=== PATIENT | female | born 1995 | race Caucasian/White ===

== ENCOUNTER 2023-11-01 22:31 | Emergency (ER) | payer BC, SELFPAY ==
[2023-11-01 22:37] VITALS: BP 128/85; PULSE 71; RESP 16; TEMP 36.7; O2SAT 100; BMI 26.6
--- NOTE | 2023-11-01 22:49 | CT_ITS ---
The [address] [address] Patient Name: PAULO BAER MRN: [id number] date: 1995 Sex: F Assigned Patient Location: ER Current Patient Location: ER Accession/Order Number: [id number] Exam Date: 11/01/2023 23:41 Report Date: 11/02/2023 00:47 At the request of: RUT RAMIREZ Procedure: CT abdomen pelvis w con CT ABDOMEN PELVIS WITHOUT CONTRAST HISTORY: Patient complains of mid back pain radiating to upper anterior abdomen. Vomiting. COMPARISON: None. TECHNIQUE: Thin section axial CT images were obtained from the lung bases to the pubis symphysis. This CT exam was performed using one or more of the following dose reduction techniques: Automated exposure control, adjustment of the mA and/or kV according to patient size, or use of iterative reconstruction technique. Thin section coronal and sagittal images were reconstructed from the axial data set. All images were reviewed and interpreted. CONTRAST: Study ordered as an IV study but there is no IV contrast seen or onboard due to faulty IV. According to the technologist, there is no infiltration. FINDINGS: Assessment of solid organs is limited without the benefit of IV contrast. LUNG BASES: The lung bases are clear. GE JUNCTION AND STOMACH: Negative. No hiatal hernia. LIVER: Negative. GALLBLADDER AND BILIARY TREE: Question of tiny small dependent layering dependent calcified gallstones versus sludge. Subtle hyperdensity dependent portion. Gallbladder otherwise negative. No wall thickening or pericholecystic fluid. No biliary duct dilation identified either intrahepatic or extrahepatic.0 SPLEEN: Negative. PANCREAS: Negative. ADRENALS: Negative. KIDNEYS AND URETERS: Negative. No urinary tract calculi or hydronephrosis. No renal masses or cysts are evident. SMALL BOWEL: Negative. No obstruction or enteritis. Normal caliber loops. LARGE BOWEL: Mild diffuse colonic stool retention. No colitis or wall thickening. No significant diverticulosis. No diverticulitis.. APPENDIX: Negative. AORTA: The abdominal aorta is normal size. IVC: Negative. LYMPH NODES: There is no lymphadenopathy. REPRODUCTIVE ORGANS: Trace simple free fluid within the right hemipelvis/cul-de-sac likely benign from menses; otherwise unremarkable reproductive organs. No pelvic mass or abnormality. Physiologic changes of uterus and ovaries for menstruating female. BLADDER: Normal bladder. No bladder calculus or wall thickening. BONES: Unremarkable. COMMENTS: No ascites. No free air. CT/CT abdomen pelvis w con IMPRESSION: 1. Trace simple appearing fluid in the dependent right hemipelvis and cul-de-sac likely physiologic from menstrual onset of menses. Correlate with cycle history. 2. Subtle dependent layering hyperdensities in gallbladder could reflect tiny gallstones or hyperdense sludge. No evidence of cholecystitis. 3. No evidence of acute appendicitis or acute bowel abnormality. 4. No hydronephrosis or urinary tract calculi. 7These imaging findings do not exclude additional clinically significant abnormalities. This report should be interpreted in the context of clinical information including patient symptoms and available laboratory findings. Follow-up imaging or other interventions may be appropriate, if indicated by your clinical impression. This report was generated with voice recognition software. Effort has been made to ensure accuracy of this report, however, occasional wording errors may persist. Please contact our office with any questions. 4 Electronically authenticated by: JAYLEN GARCIA Date: 11/02/2023 00:47
--- NOTE | 2023-11-01 22:50 | ED_ITS ---
HPI - General Adult General Chief complaint: Abdominal Pain Stated complaint: Back Pain Time Seen by Provider: 11/01/23 22:45 Source: patient Mode of arrival: walk-in Limitations: no limitations History of Present Illness HPI narrative: right flank pain for 4 days with no improvement with Rx'd muscle relaxers by her PCP. Tonight she developed nausea and vomiting. Denied fever, chills, urinary symptoms. Says pain radiates into the anterior upper abdomen and lower rib cage anteriorly. No prior history of similar symptoms. No skin rash. No urinary symptoms. She takes BCPs and deems chance of to be unlikely. Related Data Home Medications Medication Instructions Recorded Confirmed cyclobenzaprine 10 mg tablet mg 11/01/23 meloxicam 7.5 mg tablet mg 11/01/23 norethindrone 0.4 mg-ethinyl tab 11/01/23 estradiol 35 mcg tablet (Balziva (28)) Previous Rx's Medication Instructions Recorded hyoscyamine sulfate 0.125 mg 0.125 mg PO Q6H PRN abdominal pain 11/02/23 sublingual tablet (Levsin/SL) #20 tabs ondansetron 4 mg disintegrating 4 mg PO Q6H PRN nausea and 11/02/23 tablet vomiting #20 tabs Allergies Allergy/AdvReac Type Severity Reaction Status Date / Time No Known Drug Allergies Allergy Verified 11/01/23 22:36 PFSH [facility] Social History Smoking status: Current some day smoker Exam Narrative Exam Narrative: Nurses notes and vital signs reviewed and patient is not hypoxic. afebrile General: Well-appearing and in no apparent distress. Skin: Warm, dry, no pallor noted. No rash. Neck: Supple, non-tender. No meningismus Eye: Pupils are equal, round and EOMI. No scleral icterus. Ears, Nose, Mouth, and Throat: Oral mucosa is moist Cardiovascular: Regular Rate and Rhythm without murmur, gallop or rub. Respiratory: No accessory muscle use or respiratory distress. Lungs are clear to auscultation, no wheezing, rales or rhonchi Back: No midline thoracic or lumbar vertebral tenderness. Right parathoracic and paralumbar soft tissue. No CVA tenderness Musculoskeletal: normal ROM, no calf or popliteal tenderness, no lower extremity edema/swelling GI: Abdomen is soft, non-distended. Normal bowel sounds. No masses appreciated. Upper abdominal tenderness to palpation. No rebound, guarding, or rigidity noted. Neurological: A&O x4. No cranial nerve dysfunction observed. No truncal ataxia. Moves all extremities. Sensation intact. Psychiatric: Cooperative and interactive. Normal mood and affect. Constitutional Vital Signs, click to edit/add: Last Vital Signs Temp 98.1 F 11/01/23 22:37 Pulse 71 11/01/23 22:37 Resp 16 11/01/23 22:37 BP 128/85 11/01/23 22:37 Pulse Ox 100 11/01/23 22:37 O2 Del Method Room Air 11/01/23 22:37 Course Vital Signs Vital signs: Vital Signs Temperature 98.1 F 11/01/23 22:37 Pulse Rate 71 11/01/23 22:37 Respiratory Rate 16 11/01/23 22:37 Blood Pressure 128/85 11/01/23 22:37 Pulse Oximetry 100 11/01/23 22:37 Oxygen Delivery Method Room Air 11/01/23 22:37 Temperature 98.1 F 11/01/23 22:37 Pulse Rate 71 11/01/23 22:37 Respiratory Rate 16 11/01/23 22:37 Blood Pressure 128/85 11/01/23 22:37 Pulse Oximetry 100 11/01/23 22:37 Oxygen Delivery Method Room Air 11/01/23 22:37 Medical Decision Making MDM Narrative Medical decision making narrative: For IV established and blood drawn and sent for testing. After she told me that she was on control pills and that was unlikely, she told the emergency department nurse that she had missed some doses of her pills and had some vaginal spotting therefore test was ordered. It was found to be negative. She then underwent CT scanning of the abdomen and pelvis. Blood and urine testing did not reveal any worrisome findings, other than slightly low potassium and sodium. Normal CBC, negative lipase, negative UA, normal renal function and normal LFTs. CT = gallbladder sludge vs gallstones, per radiologist. Findings discussed with the patient. She was discharged home with prescriptions for Levsin and Zofran and recommendation to avoid fatty foods. Referred to Dr Sanchez, general surgeon, for follow up. ED return if she worsens. Lab Data Lab results reviewed: Yes I reviewed the patient's lab results Labs: Lab Results 11/01/23 Range/Units 22:55 WBC 8.5 (4.0-11.0) 10^3/uL RBC 4.93 (4.20-5.40) 10^6/uL Hgb 13.1 (12.0-16.0) g/dL Hct 42.0 (36.0-48.0) % MCV 85.2 (81.0-99.0) fL MCH 26.6 L (26.7-34.0) pg MCHC 31.2 (29.9-35.2) g/dL RDW 14.8 (11.0-15.0) % Plt Count 361 (150-450) 10^3/uL MPV 10.8 (9.5-13.5) fL Neut % (Auto) 70.9 (43.0-75.0) % Lymph % (Auto) 21.7 (20.5-60.0) % [place] % (Auto) 4.3 (1.7-12.0) % Eos % (Auto) 2.4 (0.9-7.0) % Baso % (Auto) 0.5 (0.2-2.0) % Neut # (Auto) 6.0 (1.4-6.5) 10^3/uL Lymph # (Auto) 1.9 (1.2-3.8) 10^3/uL [place] # (Auto) 0.4 (0.3-0.8) 10^3/uL Eos # (Auto) 0.2 (0.0-0.7) 10^3/uL Baso # (Auto) 0.0 (0.0-0.1) 10^3/uL Abs Immat Gran (auto) 0.02 (0.00-0.03) 10^3/uL Imm/Tot Granulo (auto) 0.2 (0.0-0.5) % Sodium 131 L (136-145) mmol/L Potassium 3.2 L (3.5-5.1) mmol/L Chloride 99 (98-107) mmol/L Carbon Dioxide 26.3 (21.0-32.0) mmol/L Anion Gap 8.9 BUN 13.0 (7.0-18.0) mg/dL Creatinine 0.81 (0.55-1.02) mg/dL Est GFR ( Amer) >60 (>=60) Est GFR (Non-Af Amer) >60 (>=60) BUN/Creatinine Ratio 16.0 Glucose 113 H (74-106) mg/dL Calcium 9.5 (8.5-10.1) mg/dL Total Bilirubin 0.3 (0.2-1.0) mg/dL AST 21 (15-37) U/L ALT 26 (14-59) U/L Alkaline Phosphatase 74 (46-116) U/L Total Protein 8.8 H (6.4-8.2) g/dL Albumin 4.2 (3.4-5.0) g/dL Globulin 4.6 g/dL Albumin/Globulin Ratio 0.9 Lipase 40.0 (16.0-77.0) U/L Urine Color Yellow (YELLOW) Urine Clarity Clear (CLEAR) Urine pH 6.5 (5.0-9.0) Ur Specific [place] 1.025 (1.005-1.025) Urine Protein Negative (NEG/TRACE) mg/dL Urine Glucose (UA) Negative (NEGATIVE) mg/dL Urine Ketones Trace A (NEGATIVE) mg/dL Urine Occult Blood Trace-i (NEGATIVE) Urine Nitrite Negative (NEGATIVE) Urine Bilirubin Negative (NEGATIVE) Urine Urobilinogen 0.2 (0.2-1.0) EU/dL Ur Leukocyte Esterase Negative (NEGATIVE) Urine RBC 0-2 (0-2) #/HPF Urine WBC None seen (NONE SEEN) #/HPF Ur Squamous Epith Cells Few A (NONE/RARE) #/LPF Urine Crystals None seen (None Seen) #/HPF Urine Bacteria None seen (NONE SEEN) #/HPF Urine Casts None seen (NONE SEEN) #/LPF Urine Mucus None seen (NONE SEEN) Ur Culture Indicated? No Urine HCG, Qual Negative (NEGATIVE) Discharge Plan Discharge Chief Complaint: Abdominal Pain Clinical Impression: Gallbladder sludge, Biliary colic Patient Disposition: Home, Self-Care Time of Disposition Decision: 00:55 Prescriptions / Home Meds: New hyoscyamine sulfate [Levsin/SL] 0.125 mg tablet, sublingual 0.125 mg PO Q6H PRN (Reason: abdominal pain) Qty: 20 0RF ondansetron 4 mg tablet,disintegrating 4 mg PO Q6H PRN (Reason: nausea and vomiting) Qty: 20 0RF No Action cyclobenzaprine 10 mg tablet Balziva (28) 0.4-35 mg-mcg tablet meloxicam 7.5 mg tablet Instructions: Biliary Colic (ED) Stand Alone Forms: Portal Instructions Referrals: Blayne Sanchez MD [Physician] - As soon as possible VENUS TOBAR [Primary Care Provider] - 1 week
[2023-11-01 23:07] LABS: Basophils Percent Auto 0.5 % (0.2-2.0); Eosinophils Absolute Auto 0.2 10^3/uL (0.0-0.7); Eosinophils Percent Auto 2.4 % (0.9-7.0); Hemoglobin 13.1 g/dL (12.0-16.0); Immature Granulocytes Abs Auto 0.02 10^3/uL (0.00-0.03); Immature Granulocytes Pct Auto 0.2 % (0.0-0.5); Lymphocytes Absolute Auto 1.9 10^3/uL (1.2-3.8); Lymphocytes Percent Auto 21.7 % (20.5-60.0); Mean Corpuscular HGB Conc 31.2 g/dL (29.9-35.2); Mean Corpuscular Hemoglobin 26.6 pg (26.7-34.0); Mean Corpuscular Volume 85.2 fL (81.0-99.0); Mean Platelet Volume 10.8 fL (9.5-13.5); Monocytes Absolute Auto 0.4 10^3/uL (0.3-0.8); Monocytes Percent Auto 4.3 % (1.7-12.0); Neutrophils Percent Auto 70.9 % (43.0-75.0); Platelet Count 361 10^3/uL (150-450); Red Blood Count 4.93 10^6/uL (4.20-5.40); Red Cell Distribution Width 14.8 % (11.0-15.0); White Blood Count 8.5 10^3/uL (4.0-11.0)
[2023-11-01 23:10] LABS: Bilirubin Urine NEGATIVE (NEGATIVE); Blood Urine TRACE-I (NEGATIVE); Clarity Urine CLEAR (CLEAR); Color Urine YELLOW (YELLOW); Glucose Urine UA NEGATIVE (NEGATIVE); Ketones Urine TRACE mg/dL (NEGATIVE); Leukocyte Esterase Urine NEGATIVE (NEGATIVE); Nitrite Urine NEGATIVE (NEGATIVE); Protein Urine NEGATIVE (NEG/TRACE); Specific Gravity Urine 1.025 (1.005-1.025); Urobilinogen Urine 0.2 EU/dL (0.2-1.0); pH Urine 6.5 (5.0-9.0)
[2023-11-01 23:12] LABS: HCG Qualitative Urine* NEGATIVE (NEGATIVE); Urine Microscopic Indicated YES
[2023-11-01 23:21] LABS: Alanine Aminotransferase 26 U/L (14-59); Albumin Globulin Ratio 0.9; Albumin Level 4.2 g/dL (3.4-5.0); Alkaline Phosphatase 74 U/L (46-116); Anion Gap 8.9; Aspartate Amino Transferase 21 U/L (15-37); Bilirubin Total 0.3 mg/dL (0.2-1.0); Calcium 9.5 mg/dL (8.5-10.1); Carbon Dioxide 26.3 mmol/L (21.0-32.0); Chloride 99 mmol/L (98-107); Estimated GFR (African America >60 (>=60); Estimated GFR (Non-African Ame >60 (>=60); Globulin 4.6 g/dL; Glucose 113 mg/dL (74-106); Potassium 3.2 mmol/L (3.5-5.1); Sodium 131 mmol/L (136-145); Total Protein 8.8 g/dL (6.4-8.2)
[2023-11-01 23:23] LABS: Bacteria Urine NONE SEEN #/HPF (NONE SEEN); Cast Seen? NONE SEEN #/LPF (NONE SEEN); Crystals Seen? None Seen #/HPF (None Seen); Mucus Urine NONE SEEN (NONE SEEN); RBC Urine 0-2 #/HPF (0-2); Squamous Epithelial Cell Urine FEW #/LPF (NONE/RARE); Urine Culture Indicated NO; WBC Urine NONE SEEN #/HPF (NONE SEEN)
[2023-11-01] MEDS: ONDANSETRON PF 4 MG/2 ML VIAL IV (23:32)
[2023-11-01] MEDS: 0.9 % SODIUM CHLORIDE 1,000 ML 999 ML IV (23:32)
[2023-11-01] MEDS: KETOROLAC TROMETHAMINE 30 MG/ML VIAL IVP (23:32)
[2023-11-02 01:06] VITALS: BP 122/82; PULSE 98; RESP 16; TEMP 36.8; O2SAT 99
== END 2023-11-02 01:07 | disposition home or self-care (01) ==
PROVIDERS: Emergency Provider Emergency Medicine; PCP Nurse Practitioner Family
DX: K80.50 Calculus of bile duct without cholangitis or cholecystitis without obstruction (principal); K82.8 Other specified diseases of gallbladder; Z79.899 Other long term (current) drug therapy; Z79.3 Long term (current) use of hormonal contraceptives; F17.210 Nicotine dependence, cigarettes, uncomplicated
CPT/HCPCS: 36415; 74177; 80053; 81001; 83690; 84703; 85025; 96374; 96375; 99284; J1885; J2405; Q9967

== ENCOUNTER 2024-01-19 09:52 | Outpatient (OUT) | payer BC, SELFPAY ==
--- NOTE | 2024-01-19 10:02 | XR_ITS ---
The [address] [address] Patient Name: PAULO BAER MRN: [id number] date: 1995 Sex: F Assigned Patient Location: [facility] Current Patient Location: [facility] Accession/Order Number: [id number] Exam Date: 01/19/2024 10:40 Report Date: 01/19/2024 11:34 At the request of: PATRIC MATTHEWS Procedure: XR chest 2V EXAM: XR chest 2V HISTORY: Preop exam COMPARISON: None. TECHNIQUE: PA and lateral views of the chest. FINDINGS: The cardiomediastinal silhouette is normal. No focal consolidation is identified. There is no pneumothorax. No pleural effusion is noted. The osseous structures are intact. XR/XR chest 2V IMPRESSION: No acute cardiopulmonary process. Electronically authenticated by: MARY MORALES Date: 01/19/2024 11:34
--- OUTSIDE RECORDS SUMMARY | 2024-01-19 10:15 | XMS_ITS | CCD ---
Author Organization [facility] Care Team Providers Care Employee Communications Coordinator Name Role Phone Clau Tobar PHYLICIA ., DR TURNER Attending Unavailabl e GALOK ., DR TURNER Consulting Unavailabl e PHYLICIA ., DR TURNER Admitting Unavailyin e MISC, DR LLANES Primary Care Unavailable CLAU TOBAR Primary Care Physician CLAU TOBAR Primary Care Physician [phone] [place] Attending Unavailable CLAU TOBAR Primary Care Unavailable [place] Admitting Unavailable [place] Referring Unavailable CLAU TOBAR [facility] Unavailable Blayne MATTHEWS Attending CLAU [facility]z [facility] Care Unavailable CLAU TOBAR [facility] Unavailable Blayne MATTHEWS Attending Unavailable KATHY TOBARHANIE [facility] Unavailable Blayne MATTHEWS Attending KATHY BenitezHANIE [facility] Unavailable Allergies Allergy Classification Reported Allergen(s) Allergy Type Date of Onset Reaction(s) Facility (1 source) No Known Medication Allergies; Translations: [No Known Medication Allergies] Propensity to adverse reactions (disorder) [facility] Repository Medications Current Medications Medication Drug Class(es) Dates Sig (Normalized) Sig (Original) {21 (Ethinyl Estradiol 0.035 MG / Norethindrone 0.4 MG Oral Tablet) / 7 (Inert Ingredients 1 MG Oral Tablet) } Pack [Balziva 28 Day] (1 source) Estrogen Start: 12-01-2023 take 1 tablet by mouth once daily Balziva oral tablet 1 tab(s), Oral, Daily, Refill(s) 0 Start Date: 12/01/23 Status: Ordered hyoscyamine sulfate 0.125 mg oral tablet (1 source) Start: 12-01-2023 take 1 tablet by mouth every six hours as needed for pain Levsin 0.125 mg SL Tab 0.125 mg = 1 tab(s), Oral, q6hr, PRN Pain, Refills(s) 0 Start Date: 12/01/23 Status: Ordered ondansetron 4 mg disintegrating oral tablet (1 source) Serotonin-3 Receptor Antagonist Start: 12-01-2023 take 1 tablet by mouth every six hours as needed for nausea ondansetron 4 mg Dis Tab 4 mg = 1 tab(s), Oral, q6hr, PRN Nausea/Vomiting, Refills(s) 0 Start Date: 12/01/23 Status: Ordered Ortho Micronor (2 sources) Ortho Micronor Active Problems Active Problems Problem Classification Problem Date Documented Date Episodic/Chronic Biliary tract disease (3 sources) Cholelithiasis without obstruction; Translations: [Calculus of gallbladder without cholecystitis without obstruction] Onset: 12-11-2023 Episodic Other screening for suspected conditions (not mental disorders or infectious disease) (4 sources) Encounter for screening for malignant neoplasm of cervix; Translations: [ENC SCREENING MALIG NEOPLASM CERV] Onset: 12-17-2022 Episodic Residual codes; unclassified (1 source) Nicotine-filled electronic cigarette user 12-11-2023 Episodic Unclassified (1 source) Body mass index 20-24 - normal 12-11-2023 Past or Other Problems Problem Classification Problem Date Documented Da te Episodic/Chronic Immunizations and screening for infectious disease (2 sources) Contact with and (suspected) exposure to other viral communicable diseases; Translations: [Contact with and (suspected) exposure to other viral communicable diseases Z20.828] Onset: 07-31-2021 Resolved: 08-06-2021 Episodic Viral infection (1 source) COVID-19 Onset: 08-06-2021 Resolved: 08-06-2021 Results Test Name Value Interpretation Reference Range Facility Insurance Correspondenceon 0 01-16-2024 Insurance Correspondence [id number]#1.00TIFF [facility] Formson 01-06-2024 Forms [id number] #1.00TIFF [facility] Consent for Procedure/Surger yon 12-12-2023 Consent for Procedure/Surgery [id number] #1.00TIFF [facility] Ambulatory Visit Summaryon 0 12-11-2023 Ambulatory Visit Summary PAULO MEREDITH :1995 Visit Date:12/11/2023 Ambulatory Visit Instructions Your Diagnosis Symptomatic cholelithiasis Your Care Team Attending Physician - BYRON GERONIMO, Blayne Marte Primary Care Physician - EKATERINA DIEHL, CLAU Schulz This Is Your Medications List Contact prescribing physician if questions or concerns ethinyl estradiol-norethindr one (Balziva oral tablet) hyoscyamine (Levsin 0.125 mg SL Tab) ondansetron (ondansetron 4 mg Dis Tab) Procedures Performed section. Discharge Vitals Heart Rate (Peripheral) 76 Respiratory Rate 16 Blood Pressure 125/80 Height 167 cm Height 66 in Weight 66.7 kg Weight 146.74 lb BMI 23.92 Medications What How Much When Instructions Unchanged ethinyl estradiol-norethindr one (Balziva oral tablet) 1 Tablets By Mouth Every day Contact prescribing physician if questions or concerns Unchanged hyoscyamine (Levsin 0.125 mg SL Tab) 1 Tablets By Mouth Every 6 hours as needed for Pain Contact prescribing physician if questions or concerns Unchanged ondansetron (ondansetron 4 mg Dis Tab) 1 Tablets By Mouth Every 6 hours as needed for Nausea/Vomiting Contact prescribing physician if questions or concerns Medications and Immunizations Administered Not Given influenza virus vaccine, inactivated, Patient Refuses Allergies No Known Allergies No Known Medication Allergies Problems Ongoing - Any problem that you are currently receiving treatment for. BMI 23.0-23.9, adult Cholelithiasis Symptomatic cholelithiasis Vapes nicotine containing substance Patient Survey You may receive a survey via text or e-mail asking about your office visit. Please share your experience with us by completing your survey. We appreciate your feedback and thank you for choosing us for your care. [facility] RAD - CT Reporton 12-02-2023 RAD - CT Report [id number] #1.00TIFF [facility] Provider Letteron 12-01-2023 Provider Letter December 01, 2023 PAULO MEREDITH [address] [place] [phone] : 1995 Dear Ms. Meredith, We have been trying to reach you with no success. It is important that you return our call regarding your ER visit on 11/01/23 upon receiving this letter. Also, at the time of your call, please provide us with your current demographic and insurance information. Thank you for your prompt attention to this matter. Sincerely, [facility] General Surgery [phone] [facility] ED Note-Physicianon 11-21-19 ED Note-Physician [id number] #1.00TIFF [facility] Consent for Treatmenton 11-06 Consent for Treatment [id number] #1.00TIFF Normal [facility] US Abdomen, Limitedon 2023 US Abdomen, Limited Exam Date/Time: 11/18/2023 07:40 EST Reason for Exam: K80.20 Calculus of gallbladder without cholecystitis without obstruction Report IMPRESSION: Multilevel echogenic shadowing calculi obscuring the gallbladder. If there is concern for cholecystitis, could correlate with nuclear medicine HIDA scan as clinically indicated. EXAMINATION: US Abdomen, Limited HISTORY: K80.20 Calculus of gallbladder without cholecystitis without obstruction. TECHNIQUE: Sonography of the right upper quadrant was performed. Images were obtained and stored in a permanent archive.\X09\ COMPARISON: None. RESULT: Pancreas: Normal sonographic appearance of the visualized portions. Liver: Normal echotexture, echogenicity, surface contour. No focal lesion. Gallbladder: Gallbladder not well-visualized secondary to multiple echogenic shadowing calculi. Biliary Ducts: No intrahepatic or extrahepatic bile duct dilation. CBD measures 0.3 cm. Right Kidney: Imaged portions unremarkable. Ascites: None. Ordering Provider: [place] GARCIA FINAL REPORT Dictated: 11/18/2023 4:21 pm Leon Goodson MD Signed (Electronic Signature): 11/18/2023 4:21 pm Signed by: Leon Goodson MD Transcribed by: KENNETH Technologist: RENEE Pinto [facility] Physician Orderon 11-13-2023 Physician Order [id number] #1.00TIFF Normal [facility] CHEMISTRYOrdered By: SYSTEM SYSTEM on 01-01-2023 Albumin [Mass/Vol] 4.0 g/dL Normal 3.3 - 5.0 gm/dL [facility] Albumin/Globulin [Mass ratio] 1.1 {ratio} Normal 1.1 - 2.2 [facility] ALP [Catalytic activity/Vol] 61 [iU]/d Normal 21 - 98 Int._Unit/L [facility] ALT No additional P-5'-P [Catalytic activity/Vol] 19 [iU]/d Normal 6 - 46 Int._Unit/L [facility] Anion gap [Moles/Vol] 12 mmol/L Normal 6 - 16 mEq/L F [facility] AST [Catalytic activity/Vol] 17 [iU]/d Normal 5 - 43 Int._Unit/L [facility] Bilirubin [Mass/Vol] 0.5 mg/dL Normal 0.0 - 1 .1 mg/dL [facility] Calcium [Mass/Vol] 9.0 mg/dL Normal 8.9 - 11. 1 mg/dL [facility] Chloride [Moles/Vol] 103 mmol/L Normal 101 - 1 11 mmol/L [facility] Cholesterol [Mass/Vol] 172 mg/dL Normal 120 - 200 mg/dL [facility] Cholesterol in HDL [Mass/Vol] 77 mg/dL Invalid Interpretation Code [facility] Cholesterol in LDL [Mass/Vol] 76 mg/dL Normal <=129mg/dL [facility] Cholesterol in VLDL [Mass/Vol] 15 mg/dL Normal 7 - 40 mg/dL [facility] CO2 [Moles/Vol] 25 mmol/L Normal 21 - 31 mmol/L [facility] Creatinine [Mass/Vol] 0.8 mg/dL Normal 0.5 - 1.3 mg/dL [facility] GFR/1.73 sq M.predicted among blacks MDRD (S/P/Bld) [Vol rate/Area] mL/min/1.73 m2 Normal >=59mL/min/1 .73 m2 [facility] Chem S GFR/1.73 sq M.predicted among non-blacks MDRD (S/P/Bld) [Vol rate/Area] mL/min/1.73 m2 Normal >=59mL/min/1 .73 m2 [facility] S Globulin (S) [Mass/Vol] 3.7 g/dL Normal 1.4 - 4.0 gm/dL [facility] Glucose [Mass/Vol] 83 mg/dL Normal 55 - 199 mg/dL [facility] Potassium [Moles/Vol] 3.5 mmol/L Normal 3.5 - 5.3 mmol/L [facility] Protein [Mass/Vol] 7.7 g/dL Normal 6.0 - 7.8 gm/dL [facility] Sodium [Moles/Vol] 136 mmol/L Normal 135 - 145 mmol/L [facility] T4 [Mass/Vol] 10.7 ug/dL High 4.6 - 9.1 mcg/dL [facility] Triglyceride [Mass/Vol] 77 mg/dL Normal <=149mg/dL [facility] TSH Qn 0.46 m[IU]/L Normal 0.34 - 5.60 mcIU/mL [facility] Urea nitrogen [Mass/Vol] 10 mg/dL Normal 5 - 21 mg/dL [facility] Urea nitrogen/Creatinine [Mass ratio] 12 mg/mg Normal 10 - 20 [facility] HEMATOLOGYOrdered By: SYSTEM SYSTEM on 01-01-2023 Basophils/100 WBC (Bld) 1.0 % Normal 0.0 - 2.0 % [facility]eAutoSS Basophils/Leukocytes Auto (Bld) [Pure # fraction] 0.0 E9/L Normal 0.0 - 0.2 E9/L [facility] Eosinophils/100 WBC (Bld) 3.1 % Normal 0.0 - 8.0 % [facility]eAutoSS Eosinophils/Leukocyte s Auto (Bld) [Pure # fraction] 0.2 E9/L Normal 0.0 - 0.5 E9/L [facility] Lymphocytes/100 WBC (Bld) 28.7 % Normal 14.0 - 50.0 % [facility]eAutoSS Lymphocytes/Leukocyte s Auto (Bld) [Pure # fraction] 1.5 E9/L Normal 1.0 - 4.0 E9/L [facility]eAutoSS Monocytes/100 WBC (Bld) 4.5 % Normal 4.0 - 14.0 % [facility]eAutoSS Monocytes/Leukocytes Auto (Bld) [Pure # fraction] 0.2 E9/L Normal 0.2 - 1.0 E9/L [facility] Neutrophils/100 WBC (Bld) 62.7 % Normal 36.0 - 75.0 % [facility]eAutoSS Neutrophils/Leukocyte s Auto (Bld) [Pure # fraction] 3.2 E9/L Normal 2.0 - 7.5 E9/L [facility] HEMATOLOGYOrdered By: Shira wilson on 01-01-2023 Erythrocyte distribution width (RBC) [Ratio] 16.5 % High 10.9 - 14.2 % [facility] Hematocrit (Bld) [Volume fraction] 39.3 % Normal 34.0 - 46.0 % [facility] Hemoglobin (Bld) [Mass/Vol] 12.6 g/dL Normal 12.0 - 16.0 gm/dL [facility] MCH (RBC) [Entitic mass] 26.3 pg Low 27.0 - 34.0 pg [facility] MCHC (RBC) [Mass/Vol] 32.1 g/dL Normal 31.4 - 36.0 gm/dL [facility] MCV (RBC) [Entitic vol] 82.0 fL Normal 80.0 - 100.0 fL [facility] Platelet mean volume (Bld) [Entitic vol] 8.9 fL Normal 6.4 - 10.8 fL [facility] Platelets (Bld) [#/Vol] 331.0 E9/L Normal 150.0 - 500.0 E9/L [facility] RBC (Bld) [#/Vol] 4.8 E12/L Normal 4.3 - 5.9 E12/L [facility] WBC corrected for nucl RBC Auto (Bld) [#/Vol] 5.1 E9/L Normal 4.0 - 11.0 E9/L [facility] PAP ACOG PANEL 2: 21 to 29on 12-25-2022 . . Normal [facility] Comment on above: Performed By: #### [id number] #### [facility] [address] [place] [address] Dr. Clem Cornelius Age Gdln ACOG Testing 21-29 [facility] Comment on above: Performed By: #### [id number] #### [facility] [address] [place] [address] Dr. Clem Cornelius DIAGNOSIS: Comment [facility] Comment on above: Result Comment: NEGA TIVE FOR INTRAEPITHELIAL LESION OR MALIGNANCY. Performed By: #### [id number] #### [facility] [address] [place] [address] Dr. Clem Cornelius Methodology: Comment [facility] Comment on above: Result Comment: This liquid based ThinPrep(R) pap test was screened with the use of an image guided system. Performed By: #### [id number] #### [facility] [address] [place] [address] Dr. Clem Cornelius Note: Comment [facility] Comment on above: Result Comment: The Pap smear is a screening test designed to aid in the detection of premalignant and malignant conditions of the uterine cervix. It is not a diagnostic procedure and should not be used as the sole means of detecting cervical cancer. Both false-positive and false-negative reports do occur. . Performed By: #### [id number] #### [facility] [address] [place] [address] Dr. Clem Cornelius Performed by: Comment Normal [facility] Comment on above: Result Comment: Jacqueline John, Physicist Nuclear Performed By: #### [id number] #### [facility] [address] [place] [address] Dr. Clem Cornelius Reflex Criteria: Comment [facility] Comment on above: Result Comment: The HPV DNA reflex criteria were not met with this specimen result therefore, no HPV testing was performed. . Performed By: #### [id number] #### [facility] [address] [place] [address] Dr. Clem Cornelius Specimen adequacy: Comment Normal [facility] Comment on above: Result Comment: Sati sfactory for evaluation. Endocervical and/or squamous metaplastic cells (endocervical component) are present. Performed By: #### [id number] #### [facility] [address] [place] [address] Dr. Clem Cornelius COVID Quick Testingon 2020 Result Positive [employer] Other COVID Quick Testingon 2020 Result Positive [employer] Other Vital Signs Date Time Vital Sign Value Performing Clinician Facility 12-11-2023 09:46-0500 Blood Pressure Location Order[facility]headL [facility] 12-11-2023 09:46-0500 Diastolic blood pressure 80 mm[Hg] Blayne NILL [facility] 12-11-2023 09:46-0500 Heart rate 76 /min [employer] [employer] [facility] 12-11-2023 09:46-0500 Respiratory rate 16 /min Blayne NILL [employer] [facility] 12-11-2023 09:46-0500 Systolic blood pressure 125 mm[Hg] Blayne NILL [employer] [facility] 08-06-2021 16:00-0400 Body height 170.18 cm Clau Tobar Other [employer] Other 08-06-2021 16:00-0400 Body mass index (BMI) [Ratio] 25.84 kg/m2 Clau Tobar Other [employer] Other 08-06-2021 16:00-0400 Body temperature 96.4 [degF] Clau Tobar Other [employer] Other 08-06-2021 16:00-0400 Body weight 74.84 kg Clau De Pazault Other [employer] Other 08-06-2021 16:00-0400 SaO2% (BldA) [Mass fraction] 97 % Clau De Pazault Other [employer] Other 07-31-2021 15:15-0400 Body temperature 96.8 [degF] Clau Ekaterina Other [employer] Other 07-31-2021 15:15-0400 SaO2% (BldA) [Mass fraction] 97 % Clau Ekaterina Other [employer] Other Encounters Encounter Date Encounter Type Care Provider Facility Start: 12-11-2023 End: 12-12-2023 ambulatory Blayne R BYRON Facility:[facility] Start: 12-11-2023 End: 12-11-2023 Patient encounter procedure Blayne R BYRON [facility] [place] Start: 11-27-2023 ambulatory Blayne R BYRON Facility :[facility] Start: 11-18-2023 End: 11-19-2023 ambulatory [place] Start: 11-18-2023 End: 11-18-2023 Patient encounter procedure LAKE GARCIA [facility] Start: 11-03-2023 ambulatory CLAU TOBAR Facil ity: [facility] Start: 01-01-2023 End: 01-01-2023 Patient encounter procedure CLAU TOBAR [facility] Start: 12-17-2022 End: 12-17-[address] JOHNNY WHATLEY . Facility: Start: 08-06-2021 End: 08-06-2021 ambulatory Clau Tobar Other [employer] Other Start: 08-06-2021 Office outpatient visit 15 minutes Clau Tobar [facility] Start: 07-31-2021 Office outpatient visit 15 minutes Clau Tobar [facility] Procedures Date Procedure Procedure Detail Performing Clinician section Blayne LORIN Puentes Immunizations Immunization Date Immunization Notes Care Provider Krista flores NEGATED: Highlighted row has not occurred!12-11-2023 influenza virus vaccine, unspecified formulation Balyne BYRON [facility] [place] Payers Date Payer Category Payer Unknown [id number] [id number] [id number] 1995 Unknown [id number] [id number] [id number] 1995 Unknown [id number] 2.16.8 [id number] 1995 Unknown [id number] 2.16.8 [id number] 1995 Unknown [id number] 2.16.8 [id number] 1959 [facility] [id number] Social History Date Type Detail Facility Sex Assigned At [facility] Tobacco smoking status No Smokin g Status Entered [facility] Start: 12-11-2023 Tobacco smoking status Ex-smoker (fi nding) [facility] Functional Status Date Assessment Result Facility 12-11-2023 Functional Status N/A [facility] [place] Clinical Note 12-11-2023 Note Date & Type Note Facility 12-11-2023 Note Chief Complaint consultation for abdominal pain, N/V HPI Staff 28 year old female presents on consultation from [facility] [place] [facility] for right flank pain, nausea and vomiting. Prescribed Levsin and Zofran, these have been minimally effective. CT abdomen/pelvis- unremarkable. ABD US completed 11/18- cholelithiasis. Reports she has episodic pain, happening approximately every 2 weeks over the past 2-3 months. Pain will last approximately 24 hours and then spontaneously resolve. She is unable to describe pain. She can not note any triggers for pain. She will experience nausea and vomiting during episodes of pain. Reports some loose stools as well. History of Present Illness 28 yo female referred for cholelithiasis; h/o upper abd pain, N/V which began several months ago, no known triggers; has been happening every 2 weeks, begins with back pain, then radiates around to abd, associated nausea/vomiting, no fevers, resolves within 24 hours, evaluation in [facility] end of October, with normal labs, abd ct scan without contrast with no acute findings; sludge/small stones in GB, no inflammation; images reviewed, right liver edge below umbilicus, with elongated gallbladder below umbilicus; RUQ US several weeks ago with poor visualization of gallbladder, multiple echogenic stones, no ductal dilation or inflammation; abdominal operations significant for . vapes nicotine-containing products; no h/o jaundice or pancreatitis; no fmhx of biliary disease or inflammatory bowel disease. Review of Systems PHQ Score Initial Depression Screen Score: 0 SCORE ROS - Provider Constitutional: no fever, no sweats, no weight loss. Eyes: no glasses, no blurred vision, no visual loss. ENMT: no dentures, no hoarseness, no swallowing difficulties, no hearing loss, no ear infection(s), no nose bleeds. Cardiovascular: normal blood pressure, no chest pain, regular heartbeat, no heart murmur. Respiratory: no shortness of breath, no cough, no asthma, no wheezing. Gastrointestinal: no nausea, no vomiting, no diarrhea, no constipation, no blood in stool, no change in bowel habits, no abdominal pain, no hepatitis. Genitourinary: no kidney stones, no urine infection, no dysuria. Musculoskeletal: no pain, no weakness. Skin: no changing moles, no rash, no skin lumps. Neurologic: no seizures, no epilepsy, no headache. Psychiatric: no emotional or psychiatric problem. Heme/Lymph: no bleeding problems, no anemia, no blood clots, no transfusions. Allergy/Immunologic: no swollen lymph nodes/glands, no IV drug abuse. Other: Additional ROS info: Except as noted in the above Review of Systems and in the History of Present Illness, all other systems have been reviewed and are negative or noncontributory. Physical Exam Vitals & Measurements HR: 76(Peripheral) RR: 16 BP: 125/80 HT: 66 in HT: 167 cm WT: 66.7 kg WT: 146.74 lb BMI: 23.92 HEENT: normal conjunctiva, sclera clear, no scleral icterus, EOM intact, PERRLA, oral mucosa moist without lesions. Neck: trachea midline, no mass, symmetric, no thyromegaly or nodules, no adenopathy Respiratory: lungs CTA, respirations non labored. Cardiovascular: regular rate and rhythm, no murmur, no pedal edema or varicosities. Gastrointestinal: soft, non distended, no tenderness, no masses, no palpable hernias, diastasis recti no, no hepatosplenomegaly; normal bs Lymphatic: no cervical adenopathy, no supraclavicular adenopathy. Musculoskeletal: normal gait, digits and nails without infection, nodes, cyanosis, clubbing. Skin: no rashes, no lesions, no ulcers, no subcutaneous nodules, induration. Psychiatric/Neuro: oriented to time, place, person, judgement normal, affect appropriate for age, insight intact, no focal deficits. Tests: labs reviewed, x-rays reviewed, review of old records completed , Discussed surgical options, risks, and possible complications with patient. Assessment/Plan 1. Symptomatic cholelithiasis (K80.20: Calculus of gallbladder without cholecystitis without obstruction) plan laparoscopic cholecystectomy with possible intraoperative cholangiogram, informed consent obtained; slightly higher risk of open procedure due to abnormal anatomy, gallbladder below umbilicus. Unasyn 3 gms IV prior to OR SCDs Follow-up No qualifying data available Problem List/Past Medical History Ongoing BMI 23.0-23.9, adult Cholelithiasis Symptomatic cholelithiasis Vapes nicotine containing substance Historical No qualifying data Procedure/Surgical History section. Medications Balziva oral tablet, 1 tab(s), Oral, Daily Levsin 0.125 mg SL Tab, 0.125 mg= 1 tab(s), Oral, q6hr, PRN ondansetron 4 mg Dis Tab, 4 mg= 1 tab(s), Oral, q6hr, PRN Allergies No Known Allergies No Known Medication Allergies Social History Alcohol Current, Beer, Liquor, 1-2 times per month, 12/11/2023 Substance Abuse - Denies Substance Abuse, 12/11/2023 Tobacco Former smoker, quit more than 30 days ago Tobacco Use:. Cur (more content not included)... [facility] Comment on above: Result Comment: Elec tronically Signed By: BYRON GERONIMO, Blayne Borja\Date and Time Signed: 12/11/23 10:28 EST Evaluation + Plan note 01-01-2023 Note Date & Type Note Facility 01-01-2023 Evaluation + Plan note Diagnostic Tests PendingHIV Screen 4th Generation wRfx 01/01/23Acute Hepatitis A B C Panel 01/01/23RPR with Conf Rfx 01/01/23 [facility] Evaluation note 08-06-2021 Note Date & Type Note Facility 08-06-2021 Evaluation note Encounter Date Diagnosis Assessment Notes Aug, Contact with and (suspected) exposure to other viral communicable diseases (ICD-10 - Z20.828) Aug, COVID-19 (ICD-10 - U07.1) Today you tested positive for the COVID virus. This mean you need to follow all CDC quarantine guidelines found at coronavirus[place].gov. It is important to rest, increase fluids, and stay at home. Contact PCP and inform them of results. Medications like Mucinex, Cepacol, Tylenol, saline nasal spray are over the counter medications that can help with the symptoms. Current guidelines include staying home for at least 10 days, having no fever above 100.4 for 24 hours without medication and having significant improvement of symptoms before you are allowed to stop your quarantine. Contact primary care and ask for guidance is essential to follow up Aug, Other Additional time spent conducting pre-visit phone call, screening for symptoms, instructions on social distancing, application and removal of PPE, and cleaning of examination room, equipment and supplies was preformed. Patient education given for testing methodology and results. Patient care instructions given in writting by [facility] Care At Home document. [employer] Other Evaluation note 07-31-2021 Note Date & Type Note Facility 07-31-2021 Evaluation note Encounter Date Diagnosis Assessment Notes Jul, Contact with and (suspected) exposure to other viral communicable diseases (ICD-10 - Z20.828) Even though COVID RAPID test is NEGATIVE, I am highly suspicious at this time you may be positive due to the symptoms. Recommend patient follow Quarantine guidelines until you follow up with PCP.. Recommend OTC medication such as Mucinex, Sea salt nasal spray, Cepecol, Tylenol, Zyrtec, as they can help with symptoms Jul, Other Additional time spent conducting pre-visit phone call, screening for symptoms, instructions on social distancing, application and removal of PPE, and cleaning of examination room, equipment and supplies was preformed. Patient education given for testing methodology and results. Patient care instructions given in writting by [facility] Care At Home document. [employer] Other Hospital course Narrative Note Date & Type Note Facility Hospital course Narrative No data available for this section [facility] Hospital Discharge instructions Note Date & Type Note Facility Hospital Discharge instructions No data available for this section [facility] Progress note Note Date & Type Note Facility Progress note No data available for this section [facility] Summary Purpose Family History No Family History Records Found No data available for this section No data available for this section No Family History Records Found Advance Directives No Advanced Directives Records FoundNo Advanced Directives Records Found Additional Source Comments REASON FOR VISIT (unrecogniz ed section and content) #22 BLUE DODGE DART, EXPOSUR E TO BF, RUNNY NOSE, PRODUCTIVE COUGH X 1 WEEK, COVID Provider Visit#25 BLUE DART, NAUSEA, H/A, LOSS SMELL, LOSS TASTE, COVID Provider Visit INFORMATION SOURCE (unrecogn ized section and content) DATE CREATED AUTHOR 12/25/2022 [facility] DATE CREATED AUTHOR AUTHOR'S ORGANIZ ATION 01/17/2024 [facility] Patient Care team informatio n (unrecognized section and content) Personnel Name: CLAU TOBAR CNP Address: Address: [address] [place] [address] Personnel Name: CLAU TOBAR CNP Address: Address: [address] [place] [address]- Personnel Name: CLAU TOBAR CNP Address: Address: [address], [place] [address] FOR RECORDS PERTAINING TO PATIENTS WHO ARE OR HAVE BEEN ENROLLED IN A CHEMICAL DEPENDENCY/SUBSTANCEABUSE PROGRAM, SOME INFORMATION MAY BE OMITTED. This clinical summary was aggregated from multiple sources. Caution should be exercised in using it in the provision of clinical care. This summary normalizes information from multiple sources, and as a consequence, information in this document may materially change the coding, format and clinical context of patient data. In addition, data may be omitted in some cases. CLINICAL DECISIONS SHOULD BE BASED ON THE PRIMARY CLINICAL RECORDS. [facility] [employer] provides no warranty or guarantee of the accuracy or completeness of information in this document.
--- NOTE | 2024-01-19 10:44 | PM.PRESUREVA ---
History of Present Illness History of Present Illness Chief complaint: cholelithiasis Narrative: Patient presents for preadmission testing. The patient states she's been having issues with her gallbladder for the past few months, and her symptoms have been intermittent. She states she did wake up today with some right sided back pain, but denies any nausea, vomiting, fever, or any other complaints. Review of Systems ROS Narrative REVIEW OF SYSTEMS: Negative except as stated in HPI, ten or more systems reviewed. Constitutional: No fever , chills, weakness ENT: No sore throat or epistaxis Cardiovascular: No edema, chest pain, palpitations, or activity intolerance Respiratory: No shortness of breath, cough, or wheezing Musculoskeletal: No joint pain or swelling Genitourinary: No dysuria or hematuria Neurological: No numbness, tingling, weakness, or headache Psychiatric: No mood changes PFSH PFSH Medical History (Updated 01/19/24 @ 10:20 by Linda Bolivar NP) Anxiety ?F41.9 - Anxiety disorder, unspecified (ICD-10) COVID-19 ?U07.1 - COVID-19 (ICD-10) Cholelithiasis ?K80.20 - Calculus of gallbladder without cholecystitis without obstruction (ICD-10) Surgical History (Updated 01/19/24 @ 10:20 by Linda Bolivar NP) History of section ?Z98.891 - History of uterine scar from previous surgery (ICD-10) Family History (Updated 01/19/24 @ 10:20 by Linda Bolivar NP) Other Family history of hypertension Family history of ovarian cancer Family history of stroke Family history of uterine cancer Social History (Updated 01/19/24 @ 10:16 by Linda Bolivar NP) Within the past year, how often did you have a drink containing alcohol: 2-4 times a month Smoking status: Current some day smoker Do you use any of these nicotine containing products: vaping products Non-prescribed substance use: denies use Previous occupational history: Production/factory Highest level of school completed/degree received: high school graduate Meds Home Medications and Allergies Home Medications ?Medication ?Instructions ?Recorded ?Confirmed ?Type norethindrone 0.4 mg-ethinyl 1 tab PO DAILY 11/01/23 01/19/24 History estradiol 35 mcg tablet (Josseziva (28)) hyoscyamine sulfate 0.125 mg 0.125 mg PO Q6H PRN abdominal pain 11/02/23 01/19/24 Rx sublingual tablet (Levsin/SL) #20 tabs ondansetron 4 mg disintegrating 4 mg PO Q6H PRN nausea and 11/02/23 01/19/24 Rx tablet vomiting #20 tabs Allergies Allergy/AdvReac Type Severity Reaction Status Date / Time No Known Drug Allergies Allergy Verified 01/19/24 10:13 Exam Narrative Exam Narrative: Constitutional: Awake, alert, comfortable, well-appearing, nontoxic, interactive, vital signs as charted Head: Normocephalic, atraumatic Neck: Supple, normal appearance, normal range of motion, no meningeal signs, no lymphadenopathy Respiratory: No respiratory distress, breath sounds clear Cardiovascular: Regular rate and rhythm, strong and regular heart tones Abdomen: Nontender, normal bowel sounds, soft, no CVA tenderness Musculoskeletal: Normal gait, no swelling or edema Skin: No rashes or induration, no lesions, only visible skin inspected Neuro: No neurological deficits, normal sensation Psychiatric: Oriented ?3, normal affect Assessment and Plan Assessment and Plan (1) Cholelithiasis: Plan Laparoscopic cholecystectomy with possible cholangiogram scheduled with Dr. Sanchez 01/28/2024.
== END 2024-01-19 09:53 | disposition home or self-care (01) ==
LOC: PST 09:53
PROVIDERS: PCP Nurse Practitioner Family; Visit Provider Surgery
DX: Z01.810 Encounter for preprocedural cardiovascular examination (principal); Z01.818 Encounter for other preprocedural examination; K80.20 Calculus of gallbladder without cholecystitis without obstruction
CPT/HCPCS: 71046; G0463

== ENCOUNTER 2024-01-22 20:22 | Outpatient (REF) | payer BC, SELFPAY ==
--- OUTSIDE RECORDS SUMMARY | 2024-01-22 20:28 | XMS_ITS | CCD ---
Author Organization [facility] Care Team Providers Care Commutator Repairer Name Role Phone Clau Tobar Unavailable PHYLICIA ., DR TURNER Attending Unavailabl e GALOK ., DR TURNER Consulting Unavailabl e PHYLICIA ., DR TURNER Admitting Unavailabl e MISC, DR LLANES Primary Care Unavailable CLAU TOBAR Primary Care Physician CLAU TOBAR Primary Care Physician LAKE GARCIA Admitting Unavailable LAKE GARCIA Attending Unavailable LA[place] GARCIA Referring Unavailable CLAU TOBAR [facility] Unavailable CLAU TOBAR Primary [facility] Unavailable Blayne MATTHEWS Attending Unavailable CLAU TOBAR Primary Care Unavailable CLAU TOBAR Primary Care Unavailable KATHY TOBARHANIE [facility] Unavailable Blayne MATTHEWS Attending Blayne Mejia Attending Unavailable KATHY TOBARHANIE [facility] Unavailable Allergies Allergy Classification Reported Allergen(s) Allergy Type Date of Onset Reaction(s) Facility (1 source) No Known Medication Allergies; Translations: [No Known Medication Allergies] Propensity to adverse reactions (disorder) [facility] Repository Medications Current Medications Medication Drug Class(es) [...] Test Name Value Interpretation Reference Range Facility RAD - MISCon 01-20-2024 RAD - MISC [id number] #1.00TIFF [facility] Insurance Correspondenceon 0 01-16-2024 Insurance Correspondence [id number] 8#1.00TIFF [facility] Formson 01-06-2024 Forms [id number] #1.00TIFF [facility] Consent for Procedure/Surger yon 12-12-2023 Consent for Procedure/Surgery [id number] #1.00TIFF Normal [facility] Ambulatory Visit Summaryon 0 12-11-2023 Ambulatory Visit [...] you for choosing us for your care. Normal [facility] RAD - CT Reporton 12-02-2023 RAD - [address] Report [id number] #1.00TIFF Normal [facility] Provider Letteron 12-01-2023 Provider Letter December 01, 20[address] [place] [id number] : 1995 Dear Ms. Meredith, We have been trying to reach you with no success. It is important that you return our call regarding your ER visit on 11/01/23 upon receiving this letter. Also, at the time of your call, please provide us with your current demographic and insurance information. Thank you for your prompt attention to this matter. Sincerely, [facility] General Surgery [phone] [facility] ED Note-Physicianon 11-21-19 ED Note-Physician [id number] #1.00TIFF [facility] Consent for Treatmenton 11-06 Consent for Treatment [id number] #1.00TIFF Normal [facility] US Abdomen, Limitedon 2023 US Abdomen, Limited [...] Goodson MD Transcribed by: KENNETH Technologist: RENEE Normal [facility] Physician Orderon 11-13-2023 Physician Order [id number] #1.00TIFF Normal [facility] CHEMISTRYOrdered By: SYSTEM SYSTEM on 01-01-2023 Albumin [...] Normal >=59mL/min/1 .73 m2 [facility] Chem S Globulin (S) [Mass/Vol] 3.7 g/dL [...] 21 to 29on 12-25-2022 . . Normal [facility] Comment on above: Performed By: #### [id number] #### [facility] [address] [place] [address] Dr. Clem Cornelius Age Gdln ACOG Testing 21- [facility] Comment on above: Performed By: #### [id number] #### [facility] [address] [place] [address] Dr. Clem Cornelius DIAGNOSIS: Comment [facility] Comment on above: Result Comment: NEGA TIVE FOR INTRAEPITHELIAL LESION OR MALIGNANCY. Performed By: #### 4 [id number] #### [facility] [address] [place] [address] Dr. Clem Cornelius Methodology: Comment [facility] Comment on above: Result Comment: This liquid based ThinPrep(R) pap test was screened with the use of an image guided system. Performed By: #### 4 [id number] #### [facility] [address] [place] [address] Dr. Clem Cornelius Note: Comment [facility] Comment on above: Result Comment: The Pap smear is a screening test designed to aid in the detection of premalignant and malignant conditions of the uterine cervix. It is not a diagnostic procedure and should not be used as the sole means of detecting cervical cancer. Both false-positive and false-negative reports do occur. . Performed By: #### [id number] #### [facility] [address] [place] [address] Dr. Clem Cornelius Performed by: Comment Normal [facility] Comment on above: Result Comment: Jacqueline John, Experimental Mechanic Performed By: #### [id number] #### [facility] [address] [place] [address] Dr. Clem Cornelius Reflex Criteria: Comment [facility] Comment on above: Result Comment: The HPV DNA reflex criteria were not met with this specimen result therefore, no HPV testing was performed. . Performed By: #### 4 [id number] #### [facility] [address] [place] [address] Dr. Clem Cornelius Specimen adequacy: Comment Normal [facility] Comment on above: Result Comment: Sati sfactory for evaluation. Endocervical and/or squamous metaplastic cells (endocervical component) are present. Performed By: #### 4 [id number] #### [facility] [address] [address] [address] Clem Cornelius COVID Quick Testingon 2020 Result Positive [employer] Other COVID Quick Testingon 2020 Result Positive [employer] Other Vital Signs Date Time Vital Sign Value Performing Clinician Facility 12-11-2023 09:46-0500 Blood Pressure Location Blayne Stalkthis [facility] [place] 12-11-2023 09:46-0500 Diastolic blood pressure 80 mm[Hg] Blayne [employer] [facility] [place] 12-11-2023 09:46-0500 Heart rate 76 /min Plored [facility] 12-11-2023 09:46-0500 Respiratory rate 16 /min Blayne [employer] [facility] 12-11-2023 09:46-0500 Systolic blood pressure 125 mm[Hg] Blayne [employer] [facility] 08-06-2021 16:00-0400 Body height 170.18 cm Clau Tobar Other [employer] Other 08-06-2021 16:00-0400 Body mass index (BMI) [Ratio] 25.84 kg/m2 Clau Tobar Other [employer] Other 08-06-2021 16:00-0400 Body temperature 96.4 [degF] Clau Tobar Other [employer] Other 08-06-2021 16:00-0400 Body weight 74.84 kg Clau Tobar Other [employer] Other 08-06-2021 16:00-0400 SaO2% (BldA) [Mass fraction] 97 % Clau Tobar Other [employer] Other 07-31-2021 15:15-0400 Body temperature 96.8 [degF] Clau Tobar Other [employer] Other 07-31-2021 15:15-0400 SaO2% (BldA) [Mass fraction] 97 % Clau Tobar Other [employer] Other Encounters Encounter Date Encounter Type Care Provider Facility Start: 12-11-2023 End: 12-12-2023 ambulatory Blayne MATTHEWS Facility: [facility] Start: 12-11-2023 End: 12-11-2023 Patient encounter procedure Blayne MATTHEWS [facility] [place] Start: 11-27-2023 ambulatory CLAU EKATERINA Facil ity: [place] Start: 11-18-2023 End: 11-19-2023 ambulatory [place] GARCIA Facility:[facility] Start: 11-18-2023 End: 11-18-2023 Patient encounter procedure [place] GARC[place] [facility] Start: 11-03-2023 ambulatory CLAULATA TOBAR Facil ity: [place] Start: 01-01-2023 End: 01-01-2023 Patient encounter procedure CLAU TOBAR [facility] Start: 12-17-2022 End: 12-17-[address] JOHNNY WHATLEY . Facility: Start: 08-06-2021 End: 08-06-2021 ambulatory Clau Tobar Other [employer] Other Start: 08-06-2021 Office outpatient visit 15 minutes Clau Tobar [facility] Start: 07-31-2021 Office outpatient visit 15 minutes Clau Tobar [facility] Procedures Date Procedure Procedure Detail Performing Clinician section Blayne LORIN Puentes Immunizations Immunization Date Immunization Notes Care Provider Krista flores NEGATED: Highlighted row has not occurred!12-11-2023 influenza virus vaccine, unspecified formulation Blayne MATTHEWS [facility] Payers Date Payer Category Payer Unknown [id number] [id number] [id number] 1995 Unknown [id number] 2.16.8 [id number] 1995 Unknown [id number] 2.16.8 [id number] 1995 Unknown [id number] 2.16.8 [id number] 1995 Unknown [id number] 2.16.8 [id number] 1959 [facility] [id number] Social History Date Type Detail Facility Sex Assigned At [facility] Tobacco smoking status No Smokin g Status Entered [facility] Start: 12-11-2023 Tobacco smoking status Ex-smoker (fi nding) [facility] Functional Status Date Assessment Result Facility 12-11-2023 Functional Status N/A [facility] [place] Clinical Note 12-11-2023 Note Date & Type Note Facility 12-11-2023 Note Chief Complaint consultation for abdominal pain, N/V HPI Staff 28 year old female presents on consultation from [facility] for right flank pain, nausea and [...] fevers, resolves within 24 hours, evaluation in [facility] ED end of October, with normal [...] Tobacco Use:. Cur (more content not included)... [facility] Comment on above: Result Comment: Elec tronically Signed By: BYRON GERONIMO, Blayne Villalpando.cande\Date and Time Signed: 12/11/23 10:28 EST Evaluation + Plan note 01-01-2023 Note Date & Type Note Facility 01-01-2023 Evaluation + Plan note Diagnostic Tests PendingHIV Screen 4th Generation wRfx 01/01/23Acute Hepatitis A B C Panel 01/01/23RPR with Conf Rfx 01/01/23 [facility] Evaluation note 08-06-2021 Note Date & [...] Patient care instructions given in writting by [facility] Care At Home document. [employer] Other Evaluation note 07-31-2021 Note Date & [...] Patient care instructions given in writting by [facility] Care At Home document. [employer] Other Hospital course Narrative Note Date & Type Note Facility Hospital course Narrative No data available for this section [facility] Hospital Discharge instructions Note Date & Type Note Facility Hospital Discharge instructions No data available for this section [facility] Progress note Note Date & Type Note Facility Progress note No data available for this section [facility] Summary Purpose Family History No Family [...] pital DATE CREATED AUTHOR AUTHOR'S ORGANIZ ATION 01/21/2024 [facility] Patient Care team informatio n (unrecognized section and content) Personnel Name: CLAU TOBAR CNP [facility]: [facility] [place] [address]- Personnel Name: CLAU TOBAR CNP Address: Address: [address] [place] [address]- Personnel Name: CLAU TOBAR CNP Address: Address: [facility] [address], [place] [address]- FOR RECORDS PERTAINING TO PATIENTS WHO ARE [...] BE BASED ON THE PRIMARY CLINICAL RECORDS. [facility] provides no warranty or guarantee of the accuracy or completeness of information in this document.
[2024-01-27 20:08] LABS: Age Gdln ACOG Testing Note (.); IGP, rfx Aptima HPV ASCU Note (.)
== END 2024-01-22 20:23 | disposition home or self-care (01) ==
LOC: LAB 20:22
PROVIDERS: PCP Nurse Practitioner Family; Visit Provider Physician Assistant
DX: Z01.419 Encounter for gynecological examination (general) (routine) without abnormal findings (principal)
CPT/HCPCS: G0145

== ENCOUNTER 2024-01-28 06:52 | Day surgery (SDC) | payer BC, SELFPAY ==
[2024-01-19 10:35] VITALS: BP 132/72; PULSE 85; TEMP 36.4; O2SAT 100; BMI 23.6
[2024-01-28] VITALS (23 sets, daily range): BP systolic 118–174; BP diastolic 83–104; PULSE 51–81; TEMP 36.1–36.4; O2SAT 97–100; BMI 22.7
--- NOTE | 2024-01-28 | OP_ITS ---
OPERATION DATE: 01/28/2024 PREOPERATIVE DIAGNOSIS: Symptomatic cholelithiasis. POSTOPERATIVE DIAGNOSIS: Symptomatic cholelithiasis. PROCEDURE: Laparoscopic cholecystectomy. SURGEON: Blayne Sanchez M.D. ANESTHESIA: General endotracheal per Dr. Vasquez. ESTIMATED BLOOD LOSS: Less than 15 mL. INDICATIONS AND CONSENT: Patient is a 28-year-old female with history of symptomatic cholelithiasis with multiple small stones noted within the gallbladder, normal liver function tests. Indications, risks, benefits, alternatives of proceeding with laparoscopic cholecystectomy were explained extensively to the patient, including risks of bleeding, infection, bile duct injury, bowel injury, need for intraoperative cholangiogram, postoperative ERCP, open procedure, blood clot, pulmonary embolus, heart attack, anesthetic complications or need for further surgery. All of her questions were answered. Informed consent was obtained. PROCEDURE: Patient was brought to the operating room, placed in the supine position. General anesthesia was induced. She was prepped and draped in the usual sterile fashion. An infraumbilical incision was made through the area of previous scarring, carried down through subcutaneous tissue using blunt dissection. The fascia was grasped and incised. Two 0 Vicryl stay sutures placed in either side of the midline fascia. The Durand trocar was then inserted and secured using the stay sutures. The abdomen was then insufflated with carbon dioxide to a pressure of 15 mm/Hg. The patient was placed in reverse Trendelenburg position with the right side up. Three 5 mm ports were then placed; one in the subxiphoid area and two in the right subcostal area, all under direct visualization. Gallbladder was then grasped with an atraumatic grasper and retracted cephalad and on the patient?s right. The infundibulum was then grasped and retracted laterally and inferiorly. Dissection was just begun below the infundibulum, where some adhesions to the body of the gallbladder were taken down using electrocautery and sharp dissection. Dissection was begun below the infundibulum, where the cystic duct and cystic artery were carefully dissected out. There was noted to be a posterior branch of the cystic artery. The infundibulum was completed freed up. The critical view of safety was obtained. The cystic artery was clipped with two Hem-O-Tavo clips proximally and one distally towards the gallbladder. The posterior branch was controlled with regular clips, then divided. The cystic duct was controlled with two Hem-O-Tavo clips proximally towards the common duct, one distally towards the gallbladder, then divided. The gallbladder was then taken down from the liver bed using electrocautery. There was a mall opening made in the gallbladder with minimal spillage of bile, no stones. On the gallbladder was completely removed, it was brought out in an Endocatch bag through the umbilical port site. The abdomen was then copiously irrigated with saline until clear. The liver bed was inspected, noted to be hemostatic, with no evidence of bile leak. All port sites were examined upon withdrawal of the ports, there was noted to be good hemostasis. The umbilical port site fascia was then closed with a 0 Vicryl figure of eight suture. All port sites were infiltrated with 0.5% Marcaine. The skin was then closed with interrupted 4-0 subcuticular Monocryl sutures and skin glue. Sterile pressure dressings were applied. Sponge and needle counts were correct x3 per nursing personnel. Patient tolerated procedure well, was extubated and sent to recovery room in good condition. CC: KJ Pete
--- OUTSIDE RECORDS SUMMARY | 2024-01-28 06:55 | XMS_ITS | CCD ---
Author Organization [facility] Care Team Providers Care Resolution Expert Name Role Phone Clau Tobar Unavailable PHYLICIA ., DR TURNER Attending Unavailabl e DEVONASIK ., DR TURNER Consulting Unavailabl e DEVONASINicki ., DR TURNER Admitting Unavailyin parekh MISC, DR LLANES Primary Care Unavailable CLAU TOBAR Primary Care Physician CLAU TOBAR Primary Care Physician LAKE GARCIA Admitting Unavailable LAKE GARCIA Attending Unavailable LAKE GARCIA Referring Unavailable CLAU TOBAR Primary Care Unavailable CLAU TOBAR Primary Care Unavailable Blayne MATTHEWS Attending Unavailable CLAU TOBAR Primary Care Unavailable CLAU TOBAR Primary Care Unavailable CLAU TOBAR Primary [facility] Unavailable Blayne MATTHEWS Attending Unavailable Blayne MATTHEWS Attending Unavailable KATHY TOBARHANIE [facility] Unavailable SUKHDEEP VASQUEZ Attending Unavailable Allergies Allergy Classification Reported Allergen(s) Allergy Type Date of Onset Reaction(s) Facility (1 source) No Known Medication Allergies; Translations: [No Known Medication Allergies] Propensity to adverse reactions (disorder) [facility] Repository Medications Current Medications Medication Drug [...] RAD - MISCon 01-20-2024 RAD - MISC [id number] #1.00TIFF [facility] Insurance Correspondenceon 0 01-16-2024 Insurance Correspondence [id number] 8#1.00TIFF [facility] Formson 01-06-2024 Forms [id number] #1.00TIFF Normal [facility] Consent for Procedure/Surger yon 12-12-2023 Consent for Procedure/Surgery [id number] #1.00TIFF Normal [facility] Ambulatory Visit Summaryon 0 12-11-2023 Ambulatory [...] for choosing us for your care. Normal [facility] RAD - CT Reporton 12-02-2023 RAD - CT Report [id number] #1.00TIFF Normal [facility] Provider Letteron 12-01-2023 Provider Letter December 01, 2023 PAULO MEREDITH [address] [place] [phone] : 1995 Dear Ms. Meredith, We have been trying to reach you with no success. It is important that you return our call regarding your ER visit on 11/01/23 upon receiving this letter. Also, at the time of your call, please provide us with your current demographic and insurance information. Thank you for your prompt attention to this matter. Sincerely, [facility] General Surgery [phone] Normal [facility] ED Note-Physicianon 11-21-19 ED Note-Physician [id number] #1.00TIFF Normal [facility] Consent for Treatmenton 11-06 Consent for Treatment [id number] #1.00TIFF [facility] US Abdomen, Limitedon 2023 US Abdomen, [...] MD Transcribed by: KENNETH Technologist: RENEE Normal [facility] Physician Orderon 11-13-2023 Physician Order [id number] #1.00TIFF Normal [facility] CHEMISTRYOrdered By: SYSTEM SYSTEM on 01-01-2023 [...] 21 to 29on 12-25-2022 . . Normal [facility] Comment on above: Performed By: #### [id number] #### [facility] [address] [place] [address] Dr. Clem Cornelius Age Gdln ACOG Testing 21- [facility] Comment on above: Performed By: #### [id number] #### [facility] [address] [place] [address] Dr. Clem Cornelius DIAGNOSIS: Comment [facility] Comment on above: Result Comment: NEGA TIVE FOR INTRAEPITHELIAL LESION OR MALIGNANCY. Performed By: #### [id number] #### [facility] [address] [place] [address] Dr. Clem Cornelius Methodology: Comment [facility] Comment on above: Result Comment: This liquid based ThinPrep(R) pap test was screened with the use of an image guided system. Performed By: #### 4 [id number] #### [facility] [address] [place] [address] Dr. Clem Cornelius Note: Comment [facility] Comment on above: Result Comment: The Pap smear is a screening test designed to aid in the detection of premalignant and malignant conditions of the uterine cervix. It is not a diagnostic procedure and should not be used as the sole means of detecting cervical cancer. Both false-positive and false-negative reports do occur. . Performed By: #### [id number] #### [facility] [address] [place] [address] Dr. Clem Cornelius Performed by: Comment [facility] Comment on above: Result Comment: Jacqueline John, Files Supervisor Performed By: #### [id number] #### [facility] [address] [place] [address] Dr. Clem Cornelius Reflex Criteria: Comment [facility] Comment on above: Result Comment: The HPV DNA reflex criteria were not met with this specimen result therefore, no HPV testing was performed. . Performed By: #### 4 [id number] #### [facility] [address] [address] [address] Clem Cornelius Specimen adequacy: Comment Normal [facility] Comment on above: Result Comment: Sati sfactory for evaluation. Endocervical and/or squamous metaplastic cells (endocervical component) are present. Performed By: #### 4 [id number] #### [facility] [address] [address] [address] Clem Cornelius COVID Quick Testingon 2020 Result Positive [facility] Other COVID Quick Testingon 2020 Result Positive [facility] Other Vital Signs Date Time Vital Sign Value Performing Clinician Facility 12-11-2023 09:46-0500 Blood Pressure Location Blayne Dome[employer] [facility] [place] 12-11-2023 09:46-0500 Diastolic blood pressure 80 mm[Hg] Blayne IKOR [employer] [facility] 12-11-2023 09:46-0500 Heart rate 76 /min [place] [place] [employer] [facility] 12-11-2023 09:46-0500 Respiratory rate 16 /min Blayne [employer] [facility] 12-11-2023 09:46-0500 Systolic blood pressure 125 mm[Hg] Blayne [employer] [facility] 08-06-2021 16:00-0400 Body height 170.18 cm Clau Tobar Other [facility] Other 08-06-2021 16:00-0400 Body mass index (BMI) [Ratio] 25.84 kg/m2 Clau Tobar Other [facility] Other 08-06-2021 16:00-0400 Body temperature 96.4 [degF] Clau Tobar Other [facility] Other 08-06-2021 16:00-0400 Body weight 74.84 kg Clau Tobar Other [facility] Other 08-06-2021 16:00-0400 SaO2% (BldA) [Mass fraction] 97 % Clau De Pazault Other [facility] Other 07-31-2021 15:15-0400 Body temperature 96.8 [degF] Clau De Pazault Other [facility] Other 07-31-2021 15:15-0400 SaO2% (BldA) [Mass fraction] 97 % Clau De Pazault Other [facility] Other Encounters Encounter Date Encounter Type Care Provider Facility Start: 01-22-2024 End: 01-22-2024 ambulatory SUKHDEEP VASQUEZ Not Available Start: 12-11-2023 End: 12-12-2023 [facility]ulatory [facility] Start: 12-11-2023 End: 12-11-2023 Patient encounter procedure Blayne MATTHEWS [facility] [place] Start: 11-27-2023 ambulatory CLAU TOBAR Facil ity: [place] Start: 11-18-2023 End: 11-19-2023 ambulatory [place] Start: 11-18-2023 End: 11-18-2023 Patient encounter procedure LAKE GARCIA [facility] Start: 11-03-2023 ambulatory CLAU TOBAR Facil ity: [place] Start: 01-01-2023 End: 03-29-2023 Patient encounter procedure CLAU TOBAR [facility] Start: 12-17-2022 End: 12-17-[address] JOHNNY WHATLEY . Facility: Start: 08-06-2021 End: 08-06-2021 ambulatory Clau Ekaterina Other [facility] Other Start: 08-06-2021 Office outpatient visit 15 minutes Clau Tobar [facility] Start: 07-31-2021 Office outpatient visit 15 minutes Clau Tobar [facility] Procedures Date Procedure Procedure Detail Performing Clinician section Blayne Puentes Immunizations Immunization Date Immunization Notes Care Provider Fa cility NEGATED: Highlighted row has not occurred!12-11-2023 influenza virus vaccine, unspecified formulation Blayne MATTHEWS [facility] [place] Payers Date Payer Category Payer Unknown [id number] 2.16.84 [id number] 1995 Unknown [id number] 2.16.8 [id number] 1995 Unknown [id number] 2.16.8 [id number] 1995 Unknown [id number] 2.16.8 [id number] 1995 Unknown [id number] 2.16.8 [id number] 1995 Unknown [id number] 2.16.84 [id number] 1959 [facility] [id number] Social History Date Type Detail Facility Sex Assigned At [facility] Tobacco smoking status No Smokin g Status Entered [facility] Start: 12-11-2023 Tobacco smoking status Ex-smoker (fi nding) [facility] [place] Functional Status Date Assessment Result Facility 12-11-2023 Functional Status N/A [facility] [place] Clinical Note 12-11-2023 Note Date & Type Note Facility 12-11-2023 Note Chief Complaint consultation for abdominal pain, N/V HPI Staff 28 year old female presents on consultation from [facility] for right flank pain, nausea and [...] fevers, resolves within 24 hours, evaluation in [facility] ED end of October, with [...] Tobacco Use:. Cur (more content not included)... [facility] Comment on above: Result Comment: Elec tronically Signed By: BYRON GERONIMO, Blayne Borja\Date and Time Signed: 12/11/23 10:28 EST Evaluation + Plan note 01-01-2023 Note Date & Type Note Facility 01-01-2023 Evaluation + Plan note Diagnostic Tests PendingHIV Screen 4th Generation wRfx 01/01/23Acute Hepatitis A B C Panel 01/01/23RPR with Conf Rfx 01/01/23 [facility] Evaluation note 08-06-2021 Note Date & [...] care instructions given in writting by [facility] Care At Home document. [facility] Other Evaluation note 07-31-2021 Note Date & [...] Patient care instructions given in writting by [facility] document. [facility] Other Hospital course Narrative Note Date & Type Note Facility Hospital course Narrative No data available for this section [facility] Hospital Discharge instructions Note Date & Type Note Facility Hospital Discharge instructions No data available for this section [facility] Progress note Note Date & Type Note Facility Progress note No data available for this section [facility] Summary Purpose Family History No Family History Records Found No data available for this section No data available for this section No Family History Records FoundNo Family History Records Found Advance Directives No Advanced Directives Records FoundNo Advanced Directives Records FoundNo Advanced Directives Records Found Additional Source Comments REASON FOR VISIT (unrecogniz ed section and content) #22 BLUE DODGE DART, EXPOSUR E TO BF, RUNNY NOSE, PRODUCTIVE COUGH X 1 WEEK, COVID Provider Visit#25 BLUE DART, NAUSEA, H/A, LOSS SMELL, LOSS TASTE, COVID Provider Visit INFORMATION SOURCE (unrecogn ized section and content) DATE CREATED AUTHOR 12/25/2022 [facility] DATE CREATED AUTHOR AUTHOR'S ORGANIZ ATION 01/21/2024 [place] DATE CREATED AUTHOR AUTHOR'S ORGANIZ ATION 01/23/2024 [facility] EPIC Patient Care team informatio n (unrecognized section and content) Personnel Name: EKATERINA SHANITAKATHYCLAU J Address: Address: [address] [place] [address] Personnel Name: EKATERINACLAU TREVINO CNP Address: Address: [facility] Dilip Mathias, [place], [address] Personnel Name: EKATERINA CAPTAIN ASSISTANTCLAU Jazz Address: Address: [facility] Dilip Mathias, [facility] [place], [address] FOR RECORDS PERTAINING TO PATIENTS WHO ARE [...] BE BASED ON THE PRIMARY CLINICAL RECORDS. [employer] provides no warranty or guarantee of the accuracy or completeness of information in this document.
[2024-01-28 07:22] LABS: HCG Qualitative NEGATIVE (NEGATIVE)
[2024-01-28] MEDS: LACTATED RINGER'S SOLUTION 1,000 ML 50 ML IV ×2 (07:27→09:22)
[2024-01-28] MEDS: AMPICILLIN SODIUM/SULBACTAM NA 3 GM in 0.9 % SODIUM CHLORIDE 100 ML IV (08:14)
[2024-01-28] MEDS: BUPIVACAINE HCL 0.5% PF 50 MG/10 ML VIAL 20 ML INJ (09:36)
[2024-01-28] MEDS: HYDROMORPHONE HCL 0.5 MG/0.5 ML SYRINGE IV (10:05)
[2024-01-28] MEDS: KETOROLAC TROMETHAMINE 30 MG/ML VIAL IVP (10:18)
[2024-01-28] MEDS: MEPERIDINE HCL/PF 25 MG/ML VIAL 12.5 MG IVP (10:24)
[2024-01-28] MEDS: HYDROCODONE/ACET 5-325 MG TABLET 1 TAB PO (10:52)
== END 2024-01-28 12:20 | disposition home or self-care (01) ==
PROVIDERS: PCP Nurse Practitioner Family; Visit Provider Surgery
PROC: (CPT 790; principal; 2024-01-28 08:15)
DX: K80.10 Calculus of gallbladder with chronic cholecystitis without obstruction (principal); F41.9 Anxiety disorder, unspecified; Z86.16 Personal history of COVID-19; F17.290 Nicotine dependence, other tobacco product, uncomplicated
CPT/HCPCS: 47562; 36415; 84703; 88304; 94667; 99999; J1094; J1170; J2704

== ENCOUNTER 2024-05-10 19:34 | Emergency (ER) | payer BC, SELFPAY ==
[2024-05-10 19:55] VITALS: BP 131/93; PULSE 58; TEMP 36.8; O2SAT 100; BMI 21.9
== END 2024-05-10 21:38 | disposition left against medical advice (07) ==
LOC: ER 19:41
PROVIDERS: Emergency Provider Emergency Medicine; PCP Nurse Practitioner Family
DX: Z53.21 Procedure and treatment not carried out due to patient leaving prior to being seen by health care provider (principal)

== ENCOUNTER 2024-06-14 10:10 | Emergency (ER) | payer BC, SELFPAY ==
[2024-06-14 10:30] VITALS: BP 116/80; PULSE 74; TEMP 37; O2SAT 99; BMI 23.4
--- NOTE | 2024-06-14 10:48 | ED.GENADUL1 ---
HPI HPI - General Adult General Chief complaint: Abdominal Pain Stated complaint: VOMITTING BLOOD Time Seen by Provider: 06/14/24 10:36 Source: patient Mode of arrival: walk-in Limitations: no limitations History of Present Illness HPI narrative: 29-year-old female presents to the emergency department for vomiting some black stuff last night. She did not see any bright red blood and has had no dark stools or blood in her stools. She is on some medication for possible ulcer and is in the process of getting that worked up. She has not had an endoscopy and has no abdominal pain. Related Data Home Medications ?Medication ?Instructions ?Recorded ?Confirmed norethindrone 0.4 mg-ethinyl 1 tab PO DAILY 11/01/23 01/19/24 estradiol 35 mcg tablet (Balziva (28)) pantoprazole 20 mg tablet,delayed 20 mg PO DAILY 06/14/24 06/14/24 release Previous Rx's ?Medication ?Instructions ?Recorded hyoscyamine sulfate 0.125 mg 0.125 mg PO Q6H PRN abdominal pain 11/02/23 sublingual tablet (Levsin/SL) #20 tabs ondansetron 4 mg disintegrating 4 mg PO Q6H PRN nausea and 11/02/23 tablet vomiting #20 tabs hydrocodone 5 mg-acetaminophen 325 1 tab PO Q6H PRN Pain Scale 4-6 01/28/24 mg tablet #14 tabs Allergies Allergy/AdvReac Type Severity Reaction Status Date / Time No Known Drug Allergies Allergy Verified 06/14/24 10:34 Opioid HPI Opioid Management Most Recent Opioid Data: Last Pain Scale 4 01/28/24 11:54 Review of Systems ROS Narrative A ten point review of systems is negative except as noted above. PFSH PFSH Medical History (Updated 06/14/24 @ 11:32 by Patrice Jennings MD) Anxiety ?F41.9 - Anxiety disorder, unspecified (ICD-10) COVID-19 ?U07.1 - COVID-19 (ICD-10) Cholelithiasis ?K80.20 - Calculus of gallbladder without cholecystitis without obstruction (ICD-10) Surgical History (Updated 01/19/24 @ 10:20 by Linda Bolivar NP) History of section ?Z98.891 - History of uterine scar from previous surgery (ICD-10) Family History (Updated 01/19/24 @ 10:20 by Linda Bolivar NP) Other Family history of hypertension Family history of ovarian cancer Family history of stroke Family history of uterine cancer Social History (Updated 01/19/24 @ 10:16 by Linda Bolivar NP) Within the past year, how often did you have a drink containing alcohol: 2-4 times a month Smoking status: Current some day smoker Do you use any of these nicotine containing products: vaping products Non-prescribed substance use: denies use Previous occupational history: Production/factory Highest level of school completed/degree received: high school graduate Little interest or pleasure in doing things: not at all Feeling down, depressed, or hopeless: not at all Exam Narrative Exam Narrative: Nurses note and vital signs reviewed and patient is not hypoxic. General: The patient appears well and in no apparent distress. Patient is resting comfortably on cart. Skin: Warm, dry, no pallor noted. There is no rash noted. Head: Normocephalic, atraumatic Eye: Normal conjunctiva, no drainage Ears, Nose, Mouth, and Throat: oral mucosa is moist. Nares patent. Cardiovascular: Regular Rate and Rhythm, not tachycardic Respiratory: Patient is in no distress, no accessory muscle use, lungs are clear to auscultation, no wheezing, rales or rhonchi Back: non-tender GI: no tenderness to palpation, no masses appreciated. No rebound, guarding, or rigidity noted. Musculoskeletal: The patient has no evidence of calf tenderness, no pitting edema, symmetrical pulses noted bilaterally Neurological: Awake and alert Psychiatric: Cooperative Constitutional Vital Signs, click to edit/add: Last Vital Signs Temp 98.6 F 06/14/24 10:30 Pulse 74 06/14/24 10:30 Resp 18 06/14/24 10:30 BP 116/80 06/14/24 10:30 Pulse Ox 99 06/14/24 10:30 O2 Del Method Room Air 06/14/24 10:30 Course Vital Signs Vital signs: Vital Signs Temperature 98.6 F 06/14/24 10:30 Pulse Rate 74 06/14/24 10:30 Respiratory Rate 18 06/14/24 10:30 Blood Pressure 116/80 06/14/24 10:30 Pulse Oximetry 99 06/14/24 10:30 Oxygen Delivery Method Room Air 06/14/24 10:30 Temperature 98.6 F 06/14/24 10:30 Pulse Rate 74 06/14/24 10:30 Respiratory Rate 18 06/14/24 10:30 Blood Pressure 116/80 06/14/24 10:30 Pulse Oximetry 99 06/14/24 10:30 Oxygen Delivery Method Room Air 06/14/24 10:30 Medical Decision Making MDM Narrative Medical decision making narrative: Hemoglobin is normal. She has already been referred to GI by her PCP for possible upper endoscopy and she is already on pantoprazole which she will continue. There is no indication for any further testing here in the emergency department. Treatment diagnosis and follow-up were discussed with the patient. Differential Diagnosis Differential Diagnosis: Vomiting, hematemesis Lab Data Lab results reviewed: Yes I reviewed the patient's lab results Labs: Lab Results 06/14/24 Range/Units 10:51 WBC 10.9 (4.0-11.0) 10^3/uL RBC 4.85 (4.20-5.40) 10^6/uL Hgb 13.2 (12.0-16.0) g/dL Hct 41.4 (36.0-48.0) % MCV 85.4 (81.0-99.0) fL MCH 27.2 (26.7-34.0) pg MCHC 31.9 (29.9-35.2) g/dL RDW 14.6 (11.0-15.0) % Plt Count 347 (150-450) 10^3/uL MPV 10.7 (9.5-13.5) fL Neut % (Auto) 78.7 H (43.0-75.0) % Lymph % (Auto) 16.3 L (20.5-60.0) % Pendleton % (Auto) 3.6 (1.7-12.0) % Eos % (Auto) 0.8 L (0.9-7.0) % Baso % (Auto) 0.4 (0.2-2.0) % Neut # (Auto) 8.6 H (1.4-6.5) 10^3/uL Lymph # (Auto) 1.8 (1.2-3.8) 10^3/uL Pendleton # (Auto) 0.4 (0.3-0.8) 10^3/uL Eos # (Auto) 0.1 (0.0-0.7) 10^3/uL Baso # (Auto) 0.0 (0.0-0.1) 10^3/uL Abs Immat Gran (auto) 0.02 (0.00-0.03) 10^3/uL Imm/Tot Granulo (auto) 0.2 (0.0-0.5) % Sodium 140 (136-145) mmol/L Potassium 3.5 (3.5-5.1) mmol/L Chloride 103 (98-107) mmol/L Carbon Dioxide 26.2 (21.0-32.0) mmol/L Anion Gap 14.3 BUN 7.0 (7.0-18.0) mg/dL Creatinine 0.68 (0.55-1.02) mg/dL Est GFR ( Amer) >60 (>=60) Est GFR (Non-Af Amer) >60 (>=60) BUN/Creatinine Ratio 10.3 Glucose 93 (74-106) mg/dL Calcium 9.2 (8.5-10.1) mg/dL Serum HCG, Qual Negative (NEGATIVE) Discharge Plan Discharge Chief Complaint: Abdominal Pain Clinical Impression: Hematemesis Patient Disposition: Home, Self-Care Time of Disposition Decision: 11:32 Condition: Good Mode of Transportation: Private Vehicle Prescriptions / Home Meds: No Action Mary (28) 0.4-35 mg-mcg tablet 1 tab PO DAILY hyoscyamine sulfate [Levsin/SL] 0.125 mg tablet, sublingual 0.125 mg PO Q6H PRN (Reason: abdominal pain) Qty: 20 0RF ondansetron 4 mg tablet,disintegrating 4 mg PO Q6H PRN (Reason: nausea and vomiting) Qty: 20 0RF hydrocodone-acetaminophen 5-325 mg Tablet 1 tab PO Q6H PRN (Reason: Pain Scale 4-6) Qty: 14 0RF pantoprazole 20 mg tablet,delayed release (DR/EC) 20 mg PO DAILY Print Language: Belarusian Instructions: Hematemesis (ED) Referrals: VENUS TOBAR [Primary Care Provider] - 1 week
--- OUTSIDE RECORDS SUMMARY | 2024-06-14 10:56 | XMS_ITS | CCD ---
Author Organization [facility] Care Team Providers Care Erp Programmer Name Role Phone Clau Tobar PHYLICIA ., DR TURNER Attending Unavailabl e PHYLICIA ., DR TURNER Consulting Unavailyin e PHYLICIA ., DR TURNER Admitting Unavailyin SANTOYOC, DR LLANES Primary Care Unavailable CLAU TOBAR Primary Care Physician CLAU TOBAR Primary Care Physician [phone] Blayne MATTHEWS Attending Unavailable CLAU TOBAR Primary Care Unavailable Blayne MATTHEWS Attending Unavailable CLAU TOBAR Primary Care Unavailable LAKE GARCIA Admitting Unavailable LAKE GARCIA Attending Unavailable LAKE GARCIA Referring Unavailable CLAU TOBAR [facility] Care Unavailable CLAU TOBAR Primary Care Unavailable Blayne MATTHEWS Attending Unavailable CLAU TOBAR [facility] Unavailable Blayne MATTHEWS Attending Unavailable CLAU TOBAR Primary Care Unavailable CLAU TOBAR Primary Care Unavailable Blyane MATTHEWS Attending Unavailable KATHY TOBARHANIE Primary [facility] Unavailable SUKHDEEP VASQUEZ Attending Unavailable SHALA CORNELIUS Attending Unavailable SHALA CORNELIUS Attending Unavailable Allergies Allergy Classification Reported Allergen(s) Allergy Type Date of Onset Reaction(s) Facility (1 source) No Known Medication Allergies; Translations: [No Known Medication Allergies] Propensity to adverse reactions (disorder) [facility] Repository Medications Current Medications Medication Drug Class(es) Dates Sig (Normalized) Sig (Original) {21 (Ethinyl Estradiol 0.035 MG / Norethindrone 0.4 MG Oral Tablet) / 7 (Inert Ingredients 1 MG Oral Tablet) } Pack [Balziva 28 Day] (2 sources) Estrogen Start: 12-01-2023 take 1 tablet by mouth once daily Balziva oral tablet 1 tab(s), Oral, Daily, Refill(s) 0 Start Date: 12/01/23 Status: Ordered hyoscyamine sulfate 0.125 mg oral tablet (2 sources) Start: 12-01-2023 take 1 tablet by mouth every six hours as needed for pain Levsin 0.125 mg SL Tab 0.125 mg = 1 tab(s), Oral, q6hr, PRN Pain, Refills(s) 0 Start Date: 12/01/23 Status: Ordered ondansetron 4 mg disintegrating oral tablet (2 sources) Serotonin-3 Receptor Antagonist Start: 12-01-2023 take 1 tablet by mouth every six hours as needed for nausea ondansetron 4 mg Dis Tab 4 mg = 1 tab(s), Oral, q6hr, PRN Nausea/Vomiting, Refills(s) 0 Start Date: 12/01/23 Status: Ordered Ortho Micronor (2 sources) Ortho Micronor Active Problems Active Problems Problem Classification Problem Date Documented Date Episodic/Chronic Biliary tract disease (7 sources) Cholelithiasis without obstruction; Translations: [Calculus of gallbladder without cholecystitis without obstruction] Onset: 12-11-2023 Episodic Other screening for suspected conditions (not mental disorders or infectious disease) (4 sources) Encounter for screening for malignant neoplasm of cervix; Translations: [ENC SCREENING MALIG NEOPLASM CERV] Onset: 12-17-2022 Episodic Residual codes; unclassified (2 sources) Nicotine-filled electronic cigarette user 12-11-2023 Episodic Unclassified (2 sources) Body mass index 20-24 - normal 12-11-2023 [...] Test Name Value Interpretation Reference Range Facility [facility] 02-11-2024 Forms [id number] #1.00TIFF Normal [facility] Ambulatory Visit Summaryon 0 5-02-2024 Ambulatory Visit Summary PAULO MEREDITH :1995 Visit Date:02/05/2024 Ambulatory Visit Instructions Your Care Team Attending Physician - BYRON GERONIMO, Blayne Marte Primary Care Physician - CLAU TOBAR CNP This Is Your Medications List Contact prescribing physician if questions or concerns ethinyl estradiol-norethindr one (Balziva oral tablet) hyoscyamine (Levsin 0.125 mg SL Tab) ondansetron (ondansetron 4 mg Dis Tab) Procedures Performed Laparoscopic cholecystectomy (01/28/2024), section. Medications What How Much When Instructions Unchanged [...] Contact prescribing physician if questions or concerns Allergies No Known Allergies No Known Medication [...] for choosing us for your care. Normal [facility] General Surgery Office/Clini c Noteon 02-05-2024 General Surgery Office/Clinic Note Chief Complaint post operative follow up HPI Staff 8 day post operative follow up post lap cholecystectomy. Reports minimal soreness. Taking Ibuprofen 600mg TID. Denies bleeding or drainage. No food intolerances. Denies diarrhea. History of Present Illness 8 days s/p LS cholecystectomy, pathology with chronic cholecystitis and numerous small stones; doing well, mild soreness controlled with ibuprofen; normal bms, no N/V; no fevers; no drainage from incisions or ecchymosis. Review of Systems ROS - Provider Constitutional: no fever, no [...] and are negative or noncontributory. Physical Exam abd: soft, normal bs, nontender, nondistended, incisions without erythema or drainage, no significant ecchymoses or edema. Assessment/Plan 1. Chronic cholecystitis with calculus (K80.10: Calculus of gallbladder with chronic cholecystitis without obstruction) doing well, continue no lifting > 10 lbs for 3 weeks; ok to return to work, light duty, next week; call with problems/questions. Follow-up With When Contact Information BYRON GERONIMO, SHUBHAM Kaur Only if needed [address] [place] [address]- Additional Instructions: Problem List/Past Medical History Ongoing BMI 23.0-23.9, adult Cholelithiasis Chronic cholecystitis with calculus Symptomatic cholelithiasis Vapes nicotine containing substance Historical No qualifying data Procedure/Surgical History Laparoscopic cholecystectomy (01/28/2024), section. Medications Balziva oral tablet, 1 tab(s), [...] more than 30 days ago Tobacco Use:. Current vaping or e-cigarette use Smokeless Tobacco Use:. Cigarettes, Vaping, 0.25 per day. Started age 18.0 Years. Yes, 12/11/2023 Family History Hypertension: Father. Immunizations Vaccine Date Status Comments influenza virus vaccine, inactivated - Not Given Patient Refuses [facility] Comment on above: Result Comment: Elec tronically Signed By: BYRON GERONIMO, Blayne Borja\Date and Time Signed: 02/05/24 11:21 EDT Operative Reporton Operative Report [id number] #1.00TIFF [facility] Pathology Noteon 01-30-2024 Pathology Note [id number] #1.00TIFF [facility] Lab Reportson 01-28-2024 Lab Reports [id number] #1.00TIFF [facility] RAD - MISCon 01-20-2024 RAD - MISC [id number] #1.00TIFF [facility] Insurance Correspondenceon 0 01-16-2024 Insurance Correspondence [id number]#1.00TIFF [facility] 01-06-2024 Forms [id number] #1.00TIFF [facility] Consent for Procedure/Surger yon 12-12-2023 Consent for Procedure/Surgery [id number] #1.00TIFF [facility] Ambulatory Visit Summaryon 0 12-11-2023 Ambulatory Visit Summary PAULO MEREDITH :1995 Visit Date:12/11/2023 Ambulatory Visit Instructions Your Diagnosis Symptomatic cholelithiasis Your Care Team Attending Physician - BYRON GERONIMO, Blayne Marte Primary Care Physician - CLAU TOBAR CNP This Is Your Medications List Contact prescribing [...] for choosing us for your care. Normal [facility] RAD - CT Reporton 12-02-2023 RAD - CT Report [id number] #1.00TIFF Normal [facility] Provider Letteron 12-01-2023 Provider Letter December 01, 2023 PAULO MEREDITH [address] [place] [id number] : 1995 Dear Ms. Meredith, We have been trying to reach you with no success. It is important that you return our call regarding your ER visit on 11/01/23 upon receiving this letter. Also, at the time of your call, please provide us with your current demographic and insurance information. Thank you for your prompt attention to this matter. Sincerely, [facility] General Surgery [phone] [facility] ED Note-Physicianon 11-21-19 ED Note-Physician [id number] #1.00TIFF Normal [facility] Consent for Treatmenton 11-06 Consent for Treatment [id number] #1.00TIFF [facility] US Abdomen, Limitedon 2023 US Abdomen, [...] Goodson MD Transcribed by: KENNETH Technologist: RENEE [facility] Physician Orderon 11-13-2023 Physician Order [id number] #1.00TIFF [facility] CHEMISTRYOrdered By: SYSTEM SYSTEM on 01-01-2023 [...] to 29on 12-25-2022 . . Normal [facility] Comment on above: Performed By: #### [id number] #### [facility] [address] [place], [place] [address] Dr. Clem Cornelius Age Gdln ACOG Testing Normal [facility] Comment on above: Performed By: #### [id number] #### [facility] [address] [place] [address] Dr. Clem Cornelius DIAGNOSIS: Comment Normal [facility] Comment on above: Result Comment: NEGA TIVE FOR INTRAEPITHELIAL LESION OR MALIGNANCY. Performed By: #### [id number] #### [facility] [address] [place] [address] Dr. Clem Cornelius Methodology: Comment Normal [facility] Comment on above: Result Comment: This liquid based ThinPrep(R) pap test was screened with the use of an image guided system. Performed By: #### [id number] #### [facility] [address] [place] [address] Dr. Clem Cornelius Note: Comment Normal [facility] Comment on above: Result Comment: The Pap smear is a screening test designed to aid in the detection of premalignant and malignant conditions of the uterine cervix. It is not a diagnostic procedure and should not be used as the sole means of detecting cervical cancer. Both false-positive and false-negative reports do occur. . Performed By: #### [id number] #### [facility] [address] [place] [address] Dr. Clem Cornelius Performed by: Comment Normal [facility] Comment on above: Result Comment: Jacqueline John, Whipped Topping Mixer Performed By: #### [id number] #### [facility] [address] [place] [address] Dr. Clem Cornelius Reflex Criteria: Comment Normal [facility] Comment on above: Result Comment: The HPV DNA reflex criteria were not met with this specimen result therefore, no HPV testing was performed. . Performed By: #### [id number] #### [facility] [address] [place] [address] Dr. Clem Cornelius Specimen adequacy: Comment Normal [facility] Comment on above: Result Comment: Sati sfactory for evaluation. Endocervical and/or squamous metaplastic cells (endocervical component) are present. Performed By: #### [id number] #### [facility] [address] [place] [address] Dr. Clem Cornelius [employer] Testingon 2020 Result Positive [facility] Other COVID Quick Testingon 2020 Result Positive [facility] Other Vital Signs Date Time Vital Sign Value Performing Clinician Facility 12-11-2023 09:46-0500 Blood Pressure Location [facility] 12-11-2023 09:46-0500 Diastolic blood pressure 80 mm[Hg] Blayne NILL [facility] 12-11-2023 09:46-0500 Heart rate 76 /min [facility] 12-11-2023 09:46-0500 Respiratory rate 16 /min Blayne [facility] 12-11-2023 09:46-0500 Systolic blood pressure 125 mm[Hg] Blayne [facility] 08-06-2021 16:00-0400 Body height 170.18 cm Clau Tobar Other [facility] [employer] Other 08-06-2021 16:00-0400 Body mass index (BMI) [Ratio] 25.84 kg/m2 Clau Tobar Other [facility] Other 08-06-2021 16:00-0400 Body temperature 96.4 [degF] Clau Tobar Other [facility] Other 08-06-2021 16:00-0400 Body weight 74.84 kg Clau Tobar Other [facility] Other 08-06-2021 16:00-0400 SaO2% (BldA) [Mass fraction] 97 % Clau Tobar Other [facility] Other 07-31-2021 15:15-0400 Body temperature 96.8 [degF] Clau Tobar Other [facility] Other 07-31-2021 15:15-0400 SaO2% (BldA) [Mass fraction] 97 % Clau Tobar Other [facility] Other Encounters Encounter Date Encounter Type Care Provider Facility Start: 04-20-2024 End: 04-20-2024 ambulatory SHALA ADRYAN Not Available Start: 02-19-2024 End: 02-19-2024 ambulatory SHALA ADRYAN Not Available Start: 02-05-2024 End: 02-06-2024 ambulatory Blayne R NILL Facility:[facility] Start: 02-05-2024 End: 02-05-2024 Patient encounter procedure Blayne R NILL [facility] [address] Start: 01-28-2024 End: 01-29-2024 ambulatory Blayne R NILL Facility:[id number] Start: 01-22-2024 End: 01-22-2024 ambulatory SUKHDEEP VASQUEZ Not Available Start: 12-11-2023 End: 12-12-2023 ambulatory Blayne R NILL Facility:[facility] Start: 12-11-2023 End: 12-11-2023 Patient encounter procedure Blayne R NILL [facility] General Surgery [address] Start: 11-27-2023 ambulatory Blayne R NILL Facility :[facility] Start: 11-18-2023 End: 11-19-2023 ambulatory [place] GARCIA Facility[facility] Start: 11-18-2023 End: 11-18-2023 Patient encounter procedure LA[place] GARCIA [facility] Start: 11-03-2023 ambulatory CLAU EKATERINA Facil ity:[facility] Start: 01-01-2023 End: 01-01-2023 Patient encounter procedure CLAU J EKATERINA [facility] Start: 12-17-2022 End: 12-17-[address] JOHNNY WHATLEY . Facility: Start: 08-06-2021 End: 08-06-2021 ambulatory Clau Ekaterina Other [facility] Other Start: 08-06-2021 Office outpatient visit 15 minutes Clau Tobar [facility] Start: 07-31-2021 Office outpatient visit 15 minutes Clau Tobar [facility] Procedures Date Procedure Procedure Detail Performing Clinician Start: 01-28-2024 Laparoscopic cholecystectomy Blayne MATTHEWS section Blayne Puentes Immunizations Immunization Date Immunization Notes Care Provider Fa cility NEGATED: Highlighted row has not occurred!12-11-2023 influenza virus vaccine, unspecified formulation Blayne MATTHEWS [facility] General Surgery [address] Payers Date Payer Category Payer Unknown [id number] 2.16.84 [id number] 1995 Unknown [id number] 2.16.8 [id number]. 1995 Unknown [id number] 2.16.8 [id number]. 1995 Unknown [id number] 2.16.8 [id number]. 1995 Unknown [id number] 2.16.8 [id number] 1995 Unknown [id number] 2.16.8 [id number] 1995 Unknown [id number] 2.16.8 [id number] 1995 Unknown [id number] 2.16.84 [id number] 1995 Unknown [id number] 2.16.84 [id number] 1995 Unknown [id number] 2.16.84 [id number] 1959 [facility] [id number] Social History Date Type Detail Facility Sex Assigned At [facility] Tobacco smoking status No Smokin g Status Entered [facility] Start: 12-11-2023 Tobacco smoking status Ex-smoker (fi nding) [facility] Functional Status Date Assessment Result Facility 12-11-2023 Functional Status N/A [facility] Discharge instructions 01-29-2024 Note Date & Type Note Facility 01-29-2024 Hospital Discharg e instructions Follow Up Care 01/29/2024 10:08:13 With:BYRON GERONIMO, SHUBHAM Kaur Address: [address] [place] [address]- When: only if needed [facility] Clinical Note 12-11-2023 Note Date & Type Note Facility 12-11-2023 Note Chief Complaint consultation for abdominal pain, N/V HPI Staff 28 year old female presents on consultation from [facility] for right flank pain, nausea and [...] fevers, resolves within 24 hours, evaluation in [facility] ED end of October, with normal [...] Tobacco Use:. Cur (more content not included)... [facility] Comment on above: Result Comment: Elec tronically Signed By: BYRON GERONIMO, Blayne Borja\Date and Time Signed: 12/11/23 10:28 EST Evaluation + Plan note 01-01-2023 Note Date & Type Note Facility 01-01-2023 Evaluation + Plan note Diagnostic Tests PendingHIV Screen 4th Generation wRfx 01/01/23Acute Hepatitis A B C Panel 01/01/23RPR with Conf Rfx 01/01/23 [facility] Evaluation note 08-06-2021 Note Date & Type [...] Patient care instructions given in writting by [facility] Care At Home document. [facility] Other Evaluation note 07-31-2021 Note Date & [...] Patient care instructions given in writting by [facility] Care At Home document. [facility] Other Hospital course Narrative Note Date & Type Note Facility Hospital course Narrative No data available for this section [facility] Hospital Discharge instructions Note Date & Type Note Facility Hospital Discharge instructions No data available for this section [facility] Progress note Note Date & Type Note Facility Progress note No data available for this section [facility] Summary Purpose Family History No Family History [...] and content) DATE CREATED AUTHOR [facility]/25/2022 [facility] DATE CREATED AUTHOR AUTHOR'S ORGANIZ ATION 02/13/2024 [facility] DATE CREATED AUTHOR AUTHOR'S ORGANIZ ATION 04/24/2024 [facility] EPIC Patient Care team informatio n (unrecognized section and content) Personnel Name: CLAU TOBAR CNP Address: Address: [facility] [address] Personnel Name: CLAU TOBAR CNP Address: Address: [address] [place] [address] Personnel Name: CLAU TOBAR CNP Address: Address: [address] [place] [address] Personnel Name: CLAU TOBAR CNP Address: Address: [address] [place], [place] [address] FOR RECORDS PERTAINING TO PATIENTS WHO [...] PRIMARY CLINICAL RECORDS. [facility]. provides no warranty or guarantee of the accuracy or completeness of information in this document.
[2024-06-14 11:06] LABS: Basophils Percent Auto 0.4 % (0.2-2.0); Eosinophils Absolute Auto 0.1 10^3/uL (0.0-0.7); Eosinophils Percent Auto 0.8 % (0.9-7.0); Hematocrit 41.4 % (36.0-48.0); Hemoglobin 13.2 g/dL (12.0-16.0); Immature Granulocytes Abs Auto 0.02 10^3/uL (0.00-0.03); Immature Granulocytes Pct Auto 0.2 % (0.0-0.5); Lymphocytes Absolute Auto 1.8 10^3/uL (1.2-3.8); Lymphocytes Percent Auto 16.3 % (20.5-60.0); Mean Corpuscular HGB Conc 31.9 g/dL (29.9-35.2); Mean Corpuscular Hemoglobin 27.2 pg (26.7-34.0); Mean Corpuscular Volume 85.4 fL (81.0-99.0); Mean Platelet Volume 10.7 fL (9.5-13.5); Monocytes Absolute Auto 0.4 10^3/uL (0.3-0.8); Monocytes Percent Auto 3.6 % (1.7-12.0); Neutrophils Absolute Auto 8.6 10^3/uL (1.4-6.5); Neutrophils Percent Auto 78.7 % (43.0-75.0); Platelet Count 347 10^3/uL (150-450); Red Blood Count 4.85 10^6/uL (4.20-5.40); Red Cell Distribution Width 14.6 % (11.0-15.0); White Blood Count 10.9 10^3/uL (4.0-11.0)
[2024-06-14 11:18] LABS: Anion Gap 14.3; BUN Creatinine Ratio 10.3; Calcium 9.2 mg/dL (8.5-10.1); Carbon Dioxide 26.2 mmol/L (21.0-32.0); Chloride 103 mmol/L (98-107); Estimated GFR (African America >60 (>=60); Estimated GFR (Non-African Ame >60 (>=60); Glucose 93 mg/dL (74-106); Potassium 3.5 mmol/L (3.5-5.1); Sodium 140 mmol/L (136-145)
[2024-06-14 11:20] LABS: HCG Qualitative NEGATIVE (NEGATIVE); Internal Control Within Normal Limits
== END 2024-06-14 11:42 | disposition home or self-care (01) ==
PROVIDERS: Emergency Provider Emergency Medicine; PCP Nurse Practitioner Family
DX: K92.0 Hematemesis (principal); F17.200 Nicotine dependence, unspecified, uncomplicated
CPT/HCPCS: 36415; 80048; 81001; 84703; 85025; 99284